=== PATIENT | female | born 1930 | race Caucasian/White ===

== ENCOUNTER 2016-03-05 02:03 | Inpatient (IN) | payer MEDICARE, MEDICAID ==
[2016-03-05] VITALS (17 sets, daily range): BP systolic 115–158; BP diastolic 57–75
[~2016-03-05] VITALS: Ht 162.6 cm; Wt 63.3 kg
[~2016-03-05 02:03] MED LIST: *BLDWK1; /AMLO25TA PO; /MOM400 PO; /PANT40TA OR; /PANT40TA PO; /QUIN20TA; /QUIN20TA OR; ACCUPRIL20 PO; ACCUPRIL20 SAMPLES; ACCUPRIL40; ACET-654 PO; ACET65TA OR; ALDA25TA2; ALDA25TA2 OR; AMLO10TA; AMLO5TAB OR; AMLO5TAB2 PO; ASPI325T PO; ATEN25TA PO; ATENOL25 PO; ATENOLOL50 FOR BP; Asacol PO; BACT400T OR; CALCIUM OR; CIPR25SS OR; COLCHI0.6 FOR GOUT; CYCL5TAB PO; DITROPAN PO; F ACCUPRIL PO; FLAG500T OR; K DUR PO; LACT10SO8; LASIX20; LIDO1DIS2 TD; LIDO5DIS36 TD; LIPI20TA PO; LISI5TAB PO; LOPE2TAB PO; LORTTAB2 PO; MAALSUS16 PO; MAALSUS8 PO; MACROBID PO; MAG-TAB OR; MAGN500T2 OR; MILKSUS5 PO; MOTRIN6; MULTIVIT PO; NORV5TAB PO; NORVASC10 PO; NORVASC5 PO; OPTI0.5D5 OU; OXYB5TA PO; OXYB5TAB4 OR; OXYB5TAB80 PO; PAIN325T OR; POTA10CA2 OR; POTA20TA2 OR; PROP60CA OR; PROP60TA; PROPRANOLOL OR; PROT1TAB2 PO; SLOWTAB; SPIRPOW OR; TENO25TA PO; TYLE325T5 PO; VITAMIN C OR; [UNRECOGNIZED DRUG - CODE]; [UNRECOGNIZED DRUG - CODE] PO; [UNRECOGNIZED DRUG - CODE] PO; [UNRECOGNIZED DRUG - OTHER] -; [UNRECOGNIZED DRUG - REMARK] XX; asacol PO; imodium PO
[2016-03-05] MEDS ORDERED: dexameTHASONE 20 MG/5 ML VIAL (J1100) As Ordered ONE (02:39)
[2016-03-05] MEDS ORDERED: niCARdipine 40MG IN 200ML NACL IV BAG As Ordered ONE (02:39)
[2016-03-05] MEDS ORDERED: ASPI81CH PO (02:59)
[2016-03-05] MEDS ORDERED: ALBU83IN INH (02:59)
[2016-03-05] MEDS ORDERED: MYLASSUD PO (02:59)
[2016-03-05] MEDS ORDERED: KLOR1CAP2 PO (02:59)
[2016-03-05] MEDS ORDERED: GUAI100S29 PO (02:59)
--- NOTE | 2016-03-05 03:00 | REPUSA ---
CLINICAL HISTORY: Suspected stroke. TECHNIQUE: Multiple axial CT images were obtained through the brain without IV contrast material. COMMENTS: Comparison is made to the prior exam performed on 06/13/2014. There is acute hematoma measuring 2.5x2.2 cm in its largest transverse and anterior-posterior dimensi ons respectively. This is noted in the left basal ganglia and thalamus. Associated left intraventricu lar hemorrhage. 4 mm midline shift to the right side. Surrounding edema and mass effect with compress ion of the corresponding aspect of the left lateral ventricle. IMPRESSION: Acute intra-parenchymal left cerebral hematoma in the left basal ganglia and thalamus. Associated 4 mm midline shift to the right side. Surrounding edema. Compression of the left lateral ventricle. Associated acute intraventricular hemorrhage. Thank you for your kind referral of this patient.
[2016-03-05 03:14] LABS: MEAN CORPUSCULAR HEMOGLOBIN 23.1 pg (27.0-33.0); MEAN CORPUSCULAR HGB CONC 32.2 g/dl (32.0-36.5); MEAN CORPUSCULAR VOLUME 71.9 fl (80.0-96.0)
[2016-03-05 03:19] LABS: ANION GAP 12 MEQ/L (8-16); BLOOD UREA NITROGEN 17 MG/DL (7-18); CALCIUM LEVEL 8.3 MG/DL (8.8-10.2); CARBON DIOXIDE LEVEL 25 MEQ/L (21-32); CHLORIDE LEVEL 106 MEQ/L (98-107); GLOMERULAR FILTRATION RATE > 60.0 (>32); GLUCOSE, FASTING 126 MG/DL (83-110); INR 1.6; POTASSIUM SERUM 3.2 MEQ/L (3.5-5.1); SODIUM LEVEL 143 MEQ/L (136-145)
--- NOTE | 2016-03-05 08:18 | REP ---
Clinical: Trauma. Technique: AP, lateral views of the right tibia / fibula. Findings: There is a nondisplaced fracture involving the distal fibular metadiaphysis and possible nondisplaced fracture of the may medial malleolus. Injury involving the proximal fibular metadiaphysis versus chronic change cannot be excluded as well. Vascular calcifications are identified. Underlying osteopenia and degenerative changes appreciated. Soft tissue swelling at the ankle noted. Impression: Nondisplaced fracture of the distal fibula and medial malleolus. Soft tissue swelling at the ankle. Cannot exclude injury to the proximal fibular shaft. Signed by Seng Schneider MD 03/05/2016 08:10 A
--- NOTE | 2016-03-05 09:02 | REP ---
MR BRAIN WITHOUT CONTRAST: HISTORY: Intracranial hemorrhage. COMPARISON: MR 06/13/[address] 03/05/2016. An acute intraparenchymal hematoma is present in the left thalamus, basal ganglia, temporal and parietal lobes. The hematoma measures 2.8 cm in transverse by 2.7 cm in AP dimensions and is unchanged in size compared to the previous study. There is mass effect with partial effacement of the body of the left lateral and third ventricles with minimal midline shift to the right. An area of increased signal intensity on T2-weighted images is present in the right thalamus. This represents an old lacunar infarction. Areas of increased signal intensity on T2-weighted images are present in the periventricular and subcortical white matter and kemi. This represents small vessel ischemic disease. Multiple small areas of decreased signal intensity on T2 gradient echo images are present in the cerebral hemispheres, brainstem and cerebellum. 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 Intraventricular hemorrhage is present. The ventricular system and cortical sulci are dilated consistent with moderate volume loss. There is no extracerebral collection. Mucosal thickening is present in the right mastoid air cells. The sinuses are clear. IMPRESSION: 1. There is an acute intraparenchymal hematoma 2.8 cm in width in the left thalamus, basal ganglia, temporal and parietal lobes with minimal midline shift to the right unchanged in size compared to the previous study. 2. Intraventricular hemorrhage unchanged compared to the previous study. 3. 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 4. Small vessel ischemic disease. 5. Moderate volume loss. Signed by John Baez MD 03/05/2016 09:12 A
[2016-03-05] MEDS ORDERED: NICARDIPINE HCL IV SCH (09:15)
[2016-03-05] MEDS ORDERED: DILUENT IV SCH (09:15)
--- NOTE | 2016-03-05 09:17 | REP ---
MRI BRAIN WITHOUT CONTRAST: HISTORY: Intracranial hemorrhage. 3D [id number] MR angiography was performed at the level of the [place]. There is no aneurysm or arteriovenous malformation. Mild atherosclerotic disease involves the cavernous and supraclinoid internal carotid arteries, right middle cerebral artery trifurcation and right posterior cerebral artery. There is origin of the right posterior cerebral artery. Major intracranial vessels are patent. The left vertebral artery is dominant. IMPRESSION: 1. There is no aneurysm or arteriovenous malformation. 2. Atherosclerotic disease as described above. Signed by John Baez MD 03/05/2016 09:20 A
--- NOTE | 2016-03-05 09:55 | REP ---
Clinical: Trauma. Technique: Axial noncontrast images through the thoracic spine with coronal and sagittal re-formations. Comparison: None. Findings: There is a compression fracture at T12 with approximately 50% loss of anterior vertebral body height which is relatively new compared to abdominal CT dated 2012. There is no associated retropulsed fracture fragment and no obvious canal stenosis at this level. Moderate osteopenia and multilevel degenerative disc osteophyte complexes are noted throughout the visualized thoracic spine. There is chronic posterior osteophyte and associated disc bulge at the T7-T8 level which appears to cause moderate canal stenosis. Alignment is otherwise maintained and the spinal canal appears otherwise patent and normal. Posterior elements and spinous processes are intact. Impression: 1. Compression fracture at T12 with 50% loss of anterior vertebral body height and no retropulsed fracture fragment. 2. Osteopenia and moderate to advanced multilevel degenerative disc osteophyte complexes including posterior osteophyte and disc bulge at the T7-T8 level which appears to cause moderate chronic canal stenosis. Signed by Seng Schneiedr MD 03/05/2016 09:47 A
--- NOTE | 2016-03-05 09:58 | REP ---
CT CERVICAL SPINE WITHOUT CONTRAST: HISTORY: Trauma. There is no acute fracture. Disc bulges are present at the C3-4 through C5-6 levels. A disc bulge with associated osteophyte formation is present at the C6-7 level. There is minimal narrowing of the spinal canal. Uncinate process and/or facet hypertrophy are present at the C2-3 through C7-T1 levels. These findings produce minimal to mild narrowing of the neural foramina. The C5-6 and C6-7 intervertebral discs are decreased in height consistent with disc degeneration. There are 2 mm of anterior subluxation of C5 on 6. Hypodensities are present in the thyroid gland. These may represent cysts. IMPRESSION: 1. There is no acute fracture. 2. There is cervical spondylosis at the C2-3 through C7-T1 levels. 3. There are hypodensities in the thyroid gland. These may represent cysts. Signed by John Baez MD 03/05/2016 10:00 A
--- NOTE | 2016-03-05 10:18 | HPE ---
DATE OF ADMISSION: 03/05/2016 CRITICAL CARE NOTE I was called to the emergency department to evaluate this 85-year-old female found having fallen at the extended care facility. In the emergency department, she was found hypertensive and CT imaging of her head revealed a large intraparenchymal bleed, 23 mm, as well as old lacunar infarctions. Nicardipine drip was initially started and weaned, targeting a systolic blood pressure of 140. At bedside, she is somnolent, nonverbal, Joseph coma scale is 9. 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 Medications listed on recent admission include amlodipine and atenolol. At bedside, she is ill-appearing, in the position in the bed. Her temperature is 97, pulse rate 110, respirations 18, blood pressure 166/47. HEENT: She has a leftward gaze, but is able to move her eyes toward the right. Pupils are small, but respond to light. She has a positive corneal reflex. Neck is supple. Heart sounds are regular with a systolic murmur. Breath sounds are coarse, mildly diminished. Abdomen is soft. There are bowel sounds in the right lower quadrant. There is no palpable mass, but the liver edge is somewhat enlarged and firm. Extremities are cool. Right lower extremity is in an Aircast. Pulses are palpable times four. She has spontaneous movement of her left side only, withdraws to pain. Diagnostic Studies: CT scan and MRI of the brain show an acute hematoma of the left thalamus and basal ganglion with minimal shift and old lacunar infarctions. Sodium is 143, potassium 3.2, chloride 106, CO2 25, BUN 17, creatinine 0.8, glucose 126. White cell count is 15, hemoglobin 12.6, hematocrit 39, and platelet count 129,000. The primary problem requiring critical attention is acute intracranial hemorrhage. Will target blood pressure control with nicardipine. I have consulted with neurosurgery. We have had a discussion at bedside. The patient is not considered a candidate for surgery at this time. Will repeat imaging in 8 hours. 2. Right tibial fracture. The patient is in an Aircast. According to the emergency room (ER) staff, further intervention would not be needed. 3. Deep vein thrombosis (DVT) prophylaxis will be sequential hose. 4. Ulcer prophylaxis will be addressed with Protonix. The patient's family has been contacted and are out of town. They are en route. We will update them with regard to her status on arrival. She had previously indicated her desire not to undergo resuscitation nor intubation. We will honor that request at the time of her admission. Her condition is critical. Prognosis is guarded. 88 minutes was spent in the provision of bedside critical care and coordination.
--- NOTE | 2016-03-05 13:00 | EDDOCDS ---
Nurse's Notes [facility] Name: Flavio Perkins Age: 85 yrs Sex: Female : 1930 Arrival Date: 03/05/2016 Time: 02:03 Bed Admit Hold Private MD: Cleve Gómez Diagnosis: Aphasia following nontraumatic intracerebral hemorrhage Presentation: 03/05 02:07 Presenting complaint: EMS states: pt found on floor by staff at approx 01:15. right mlc sided weakness and garbled speech. unknown last well time. The last date and time the patient was known to be well was was at an unknown time on an unknown date. An acute neurological deficit is present. The charge nurse has been notified. The patient has been moved to a treatment area. The patients blood glucose was checked before arriving to the hospital and was found to be normal. Adult Sepsis Screening: Suicide/Homicide risk assessment- Unable to assess. Status: Patient is not a member service representative or dependent. Transition of care: patient was received from [facility]-assisted. 02:07 Acuity: LAZARO Level 2 [facility] [place] 02:07 Method Of Arrival: Ambulance [facility] [place] 02:15 Adult Sepsis Screening: Patient has new or worsening altered mentation (1 point). mlc Patient's respiratory rate is less than 22. Systolic blood pressure is greater than 100. Patient has a qSOFA score of 1- Negative Sepsis Screen. Triage Assessment: 02:15 The onset of the patients symptoms was less than three hours ago. General: Appears in mlc no apparent distress, Behavior is cooperative. General:. Pain: Denies pain. The patient is triaged at the bedside. See Assessment in Nurses Notes section of ED record. Neurological: Level of Consciousness is awake, obeys commands, Oriented to person, [employer] are weak on right Weakness in right arm(s) Speech is slurred, Facial droop on right, tongue shifts to right side . Pupils are PERRLA, Reports no additional symptoms. Cardiovascular: Heart tones S1 S2 present Chest pain is denied. Respiratory: Airway is patent Respiratory effort is even, unlabored, Respiratory pattern is regular, Breath sounds are clear bilaterally. GI: Abdomen is non- distended Bowel sounds present X 4 quads. Derm: Skin is pale. Musculoskeletal: Swelling absent other right ankle, pt flinches when right ankle is touched. Historical: - Allergies: No known drug Allergies; - Home Meds: 1. aspirin 81 mg Oral TbEC once daily (Last dose: 03/04/2016 08:28) 2. atenolol 25 mg Oral tab 1 tab once daily (Last dose: 03/04/2016 08:28) 3. Klor-Con Sprinkle 10 mEq oral cpER 1 cap once daily (Last dose: 03/04/2016 08:28) - PMHx: disorder magnesium metabolism; essential hypertension; liver cirrhosis; TIA; Hypokalemia; Portal hypertension; Chronic Low Back Pain; Hemochromatosis; - PSHx: Cholecystectomy; Appendectomy; Hysterectomy; Thyroidectomy; - Social history: Smoking status: unknown if patient ever smoked tobacco. Patient is speech impaired. - Family history: Not pertinent. - : The pt / caregiver states he / she is not on anticoagulants. Home medication list is obtained from the facility MAR. - Exposure Risk Screening:: None identified. Screenin:17 Screening information is obtained from the patient, residence staff. Fall risk: At risk mlc due to age, gait disturbance, injury, prior history of falls. Assistance ADL's: Requires assistance with meal preparation, this assistance is provided by residence staff, bathing, assistance is provided by residence staff, dressing, assistance is provided by residence staff, toileting, assistance is provided by residence staff, housework, assistance is provided by residence staff, medication administration, assistance is provided by residence staff. Abuse/DV Screen: The patient / caregiver reports he/she is: pt cannot be assessed for living situation at this time. Nutritional screening: No deficits noted. home support is adequate. 02:19 Advance Directives: There is an active DNR order and the pt has a copy here at this lf1 time. Assessment: 02:19 General: pt keeping right arm at 90 degree angle, doesn't not move it . mlc 03:04 Reassessment: Patient appears in no apparent distress at this time. Patient states mlc symptoms have not improved. IV fluids infusing per order, pt resting in bed. pt able to answer yes or no questions, responds to name. 03:17 Reassessment: Patient appears in no apparent distress at this time. Patient states mlc symptoms have not improved. pt returned from x-ray. Dr. Smith made aware of BP, infusion discontinued at this time. . 04:19 Reassessment: Patient appears in no apparent distress at this time. pt resting mlc comfortably. no changes since prior. resp easy/unlabored. . Respiratory: Breath sounds are clear bilaterally. 05:11 General: Appears in no apparent distress, comfortable. General: pt resting with eyes mlc closed . Respiratory: Airway is patent Respiratory effort is even, unlabored, Respiratory pattern is regular. 05:41 General: Appears in no apparent distress, comfortable, to be sleeping. mlc 06:50 General: Appears in no apparent distress, comfortable. General: pt cleaned and new mlc linens applied. pt able to roll from side to side with minimal assistance. . Neurological: Level of Consciousness is awake, obeys commands, Oriented to person, Speech is slurred. Respiratory: Airway is patent Respiratory effort is even, unlabored, Respiratory pattern is regular. 07:10 General: Appears in no apparent distress. Pain: Denies pain. Neurological: Level of ml6 Consciousness is awake, alert, Oriented to person, place, [employer] are weak on right Weakness in right in bilateral hand's) arm(s) leg(s) foot/feet Speech is slurred, with expressive aphasia noted, Facial droop on right, Pupils are PERRLA. Cardiovascular: No deficits noted. Capillary refill < 3 seconds is brisk in bilateral fingers toes. Respiratory: No deficits noted. Airway is patent Respiratory effort is even, unlabored, Respiratory pattern is regular, symmetrical, Breath sounds are clear bilaterally. 08:10 Reassessment: Patient appears in no apparent distress at this time. Patient denies pain ml6 at this time. Patient states symptoms have not improved. no change from previous assessment, patient answers yes no questions appropriately. 09:16 Reassessment: Patient appears in no apparent distress at this time. Patient denies pain ml6 at this time. Patient states symptoms have not improved. no change from previous assessment. 10:00 General: Appears in no apparent distress, comfortable. Pain: Denies pain. Neurological: ml6 Level of Consciousness is awake, alert, Oriented to person, place, Speech with expressive aphasia noted. Cardiovascular: No deficits noted. Capillary refill < 3 seconds is brisk in bilateral fingers toes. Respiratory: No deficits noted. Airway is patent Respiratory effort is even, unlabored, Respiratory pattern is regular, symmetrical. 11:00 Reassessment: Patient appears in no apparent distress at this time. Patient denies pain ml6 at this time. Patient states symptoms have not improved. patient sleeping soundly resp unlabored. 12:00 Reassessment: Patient appears in no apparent distress at this time. Patient denies pain ml6 at this time. Patient states symptoms have not improved. 12:58 General: Appears in no apparent distress. Pain: Denies pain. Neurological: Weakness in ml6 right in bilateral hand's) arm(s) leg(s) foot/feet Speech with expressive aphasia noted. Cardiovascular: No deficits noted. Vital Signs: 02:17 BP 202 / 95 (auto/); mlc 02:18 Pulse 70 MON; Pulse Ox 97% ; mlc 02:19 BP 198 / 94 LA Supine (auto/reg); Pulse 71 MON; Resp 20 S; Temp 98.6(TE); Pulse Ox 98% cln on 2 lpm NC; 02:32 Pulse 68 MON; Pulse Ox 96% ; mlc 02:32 BP 187 / 88; mlc 02:32 BP 187 / 88 (auto/); mlc 02:33 Pulse 66 MON; Pulse Ox 96% ; mlc 02:46 Pulse 66 MON; Pulse Ox 96% ; mlc 02:46 BP 179 / 84 (auto/); mlc 02:53 BP 183 / 80 (auto/); mlc 02:54 Pulse 66 MON; Pulse Ox 97% ; mlc 02:56 Pulse 68 MON; Pulse Ox 97% ; mlc 02:56 BP 172 / 80 (auto/); mlc 03:01 BP 161 / 75 (auto/); mlc 03:02 Pulse 68 MON; Pulse Ox 96% ; mlc 03:06 Pulse 70 MON; Pulse Ox 91% ; mlc 03:06 BP 152 / 70 (auto/); mlc 03:11 BP 123 / 59 (auto/); mlc 03:12 Pulse 70 MON; Pulse Ox 92% ; mlc 03:16 BP 118 / 54 (auto/); mlc 03:17 Pulse 66 MON; Pulse Ox 94% ; mlc 03:20 BP 107 / 57 (auto/); mlc 03:20 Pulse 68 MON; Pulse Ox 88% ; mlc 03:22 Pulse 66 MON; Pulse Ox 96% ; mlc 03:26 BP 97 / 51 (auto/); mlc 03:27 Pulse 64 MON; Pulse Ox 95% ; mlc 03:31 BP 99 / 56 (auto/); mlc 03:32 Pulse 64 MON; Pulse Ox 93% ; mlc 03:36 BP 113 / 59 (auto/); mlc 03:37 Pulse 68 MON; Pulse Ox 95% ; mlc 03:41 BP 113 / 59 (auto/); mlc 03:42 Pulse 68 MON; Pulse Ox 97% ; mlc 03:46 BP 113 / 63 (auto/); mlc 03:47 Pulse 68 MON; Pulse Ox 96% ; mlc 03:51 BP 117 / 66 (auto/); mlc 03:52 Pulse 68 MON; Pulse Ox 97% ; mlc 03:56 BP 115 / 65 (auto/); mlc 03:57 Pulse 68 MON; Pulse Ox 97% ; mlc 04:01 BP 122 / 67 (auto/); mlc 04:02 Pulse 68 MON; Pulse Ox 97% ; mlc 04:06 Pulse 68 MON; Pulse Ox 98% ; mlc 04:06 BP 151 / 87 (auto/); mlc 04:11 BP 151 / 79 (auto/); mlc 04:12 BP 156 / 72 (auto/); mlc 04:12 Pulse 70 MON; Pulse Ox 98% ; mlc 04:13 Pulse 72 MON; Pulse Ox 97% ; mlc 04:16 BP 156 / 72 (auto/); mlc 04:17 Pulse 76 MON; Pulse Ox 98% ; mlc 04:21 BP 143 / 74 (auto/); mlc 04:22 Pulse 76 MON; Pulse Ox 97% ; mlc 04:26 BP 139 / 68 (auto/); mlc 04:27 Pulse 78 MON; Pulse Ox 97% ; mlc 04:31 BP 129 / 60 (auto/); mlc 04:32 Pulse 74 MON; Pulse Ox 97% ; mlc 04:36 BP 134 / 63 (auto/); mlc 04:37 Pulse 74 MON; Pulse Ox 97% ; mlc 04:41 BP 125 / 58 (auto/); mlc 04:42 Pulse 72 MON; Pulse Ox 97% ; mlc 04:46 BP 127 / 62 (auto/); mlc 04:47 Pulse 74 MON; Pulse Ox 97% ; mlc 04:51 BP 129 / 61 (auto/); mlc 04:52 Pulse 74 MON; Pulse Ox 96% ; mlc 04:56 BP 118 / 58 (auto/); mlc 04:57 Pulse 72 MON; Pulse Ox 97% ; mlc 05:01 BP 118 / 60 (auto/); mlc 05:02 Pulse 72 MON; Pulse Ox 97% ; mlc 05:06 BP 117 / 58 (auto/); mlc 05:07 Pulse 72 MON; Pulse Ox 97% ; mlc 05:11 BP 120 / 59 (auto/); mlc 05:12 Pulse 70 MON; Pulse Ox 97% ; mlc 05:16 BP 124 / 57 (auto/); mlc 05:17 Pulse 70 MON; Pulse Ox 97% ; mlc 05:21 BP 125 / 57 (auto/); mlc 05:22 Pulse 70 MON; Pulse Ox 96% ; mlc 05:26 BP 124 / 58 (auto/); mlc 05:27 Pulse 72 MON; Pulse Ox 97% ; mlc 05:31 BP 112 / 56 (auto/); mlc 05:32 Pulse 70 MON; Pulse Ox 97% ; mlc 05:36 BP 129 / 64 (auto/); mlc 05:37 Pulse 42 MON; Pulse Ox 97% ; mlc 05:39 Pulse 70 MON; Pulse Ox 97% ; mlc 05:41 BP 134 / 71 (auto/); mlc 05:42 Pulse 70 MON; Pulse Ox 97% ; mlc 05:46 BP 128 / 63 (auto/); mlc 05:47 Pulse 76 MON; Pulse Ox 97% ; mlc 05:51 BP 126 / 62 (auto/); mlc 05:52 Pulse 74 MON; Pulse Ox 96% ; mlc 05:56 BP 130 / 63 (auto/); mlc 05:57 Pulse 72 MON; Pulse Ox 95% ; mlc 06:06 BP 132 / 74 (auto/); mlc 06:06 Pulse 80 MON; Pulse Ox 97% ; mlc 06:11 Pulse 76 MON; Pulse Ox 94% ; mlc 06:11 BP 118 / 59 (auto/); mlc 06:16 BP 116 / 56 (auto/); mlc 06:17 Pulse 74 MON; Pulse Ox 93% ; mlc 06:18 Pulse 72 MON; Pulse Ox 93% ; mlc 06:21 BP 106 / 56 (auto/); mlc 06:22 Pulse 66 MON; Pulse Ox 94% ; mlc 06:26 Pulse 72 MON; Pulse Ox 95% ; mlc 06:26 BP 104 / 52 (auto/); mlc 06:29 BP 100 / 62 (auto/); mlc 06:30 Pulse 86 MON; Pulse Ox 96% ; mlc 06:31 BP 105 / 55 (auto/); mlc 06:32 Pulse 76 MON; Pulse Ox 97% ; mlc 06:36 BP 102 / 58 (auto/); mlc 06:36 Pulse 76 MON; Pulse Ox 97% ; mlc 06:45 BP 125 / 66 (auto/); mlc 06:48 Pulse 72 MON; Pulse Ox 96% ; mlc 07:16 BP 103 / 54 (auto/); ml6 07:16 Pulse 72 MON; Resp 16; Pulse Ox 96% on R/A; ml6 07:31 BP 108 / 59 (auto/); ml6 07:31 Pulse 68 MON; Resp 16; Pulse Ox 97% on R/A; ml6 07:36 Weight 61.14 kg (R); Height 5 ft. (152.40 cm); ml6 07:36 BP 101 / 59 (auto/); ml6 07:36 Pulse 68 MON; Resp 16; Pulse Ox 94% on R/A; ml6 08:32 BP 166 / 78 (auto/); Pulse 74; Resp 16; Pulse Ox 98% on R/A; ml6 09:32 BP 139 / 69 (auto/); ml6 09:32 Pulse 72 MON; Resp 18; Pulse Ox 98% on R/A; ml6 09:47 BP 126 / 62 (auto/); ml6 09:47 Pulse 70 MON; Resp 16; Pulse Ox 98% on R/A; ml6 10:02 BP 124 / 62 (auto/); ml6 10:02 Pulse 70 MON; Resp 16; Pulse Ox 98% on R/A; Pain 0/10; ml6 10:17 BP 124 / 66 (auto/); ml6 10:17 Pulse 70 MON; Resp 16; Pulse Ox 97% on R/A; ml6 10:32 BP 129 / 68 (auto/); ml6 10:32 Pulse 72 MON; Resp 16; Pulse Ox 97% on R/A; ml6 10:47 BP 129 / 58 (auto/); ml6 10:47 Pulse 76 MON; Resp 16; Pulse Ox 98% ; ml6 11:02 BP 148 / 66 (auto/); ml6 11:02 Pulse 70 MON; Resp 16; Pulse Ox 96% on R/A; ml6 11:32 BP 106 / 56 (auto/); ml6 11:32 Pulse 74 MON; Resp 16; Pulse Ox 96% on R/A; ml6 11:47 BP 105 / 55 (auto/); ml6 11:47 Pulse 74 MON; Resp 16; Pulse Ox 97% on R/A; ml6 12:02 BP 104 / 55 (auto/); ml6 12:02 Pulse 72 MON; Resp 6; Pulse Ox 97% on R/A; ml6 12:17 BP 104 / 55 (auto/); ml6 12:17 Pulse 72 MON; Resp 16; Temp 97.8(O); Pulse Ox 96% on R/A; Pain 0/10; ml6 07:36 Body Mass Index 26.33 (61.14 kg, 152.40 cm) ml6 Vitals: 02:15 Glucose Measurement D-stick done by EMS. Log In Time N/A - ambulance arrival. mlc ED Course: 02:04 Patient visited by Leilani Kee, [place]. ml3 02:04 Cleve Gómez is Private Physician. ml3 02:04 Rere Carballo RN is Primary Nurse. ml3 02:04 Patient moved to Waiting ml3 02:04 Patient moved to 11 ml3 02:12 Triage Initiated mlc 02:17 Emeterio Smith DO is Attending Physician. cs11 02:17 Patient visited by Emeterio Smith DO. cs11 02:17 The patient / caregiver is instructed regarding the plan of care and ED course. mlc 02:19 Patient visited by Rere Carballo RN. mlc 02:19 Unable to orient pt to ED due to medical condition. Patient has correct armband on for cln positive identification. Placed in gown. Bed in low position. Call light in reach. Side rails up X 1. 02:20 Patient visited by Elise Dacosta PCA. cln 03:05 casing in line feeder on. Pulse ox on. NIBP on. mlc 03:05 Maintain field IV. Dressing intact. Good blood return noted. Site clean & dry. Gauge & mlc site: 18g left AC. 03:06 Patient visited by Rere Carballo RN. mlc 03:19 Patient visited by Rere Carballo RN. mlc 03:34 Patient visited by Rere Carballo RN. mlc 03:39 [facility] Payment Agreement was scanned into [employer] and attached to record. hs2 03:40 CT Head Without Contrast Returned. EDMS 04:09 Patient visited by Rere Carballo RN. mlc 04:20 Patient visited by Rere CarballoGAVI. mlc 04:45 air cast applied to right ankle. mlc 05:06 Patient moved to OBSERVATION cs11 05:11 Patient visited by Rere Carballo,GAVI. mlc 05:41 Patient visited by Rere Carballo,GAVI. mlc 06:51 Patient visited by Rere Carballo,GAVI. mlc 06:55 Attending Physician role handed off by Emeterio Smith DO sd1 06:55 Meryl Amador MD is Attending Physician. sd1 07:40 Patient moved to MRI ml6 07:55 Patient visited by Romeo Rios, GAVI. ml6 08:27 Tibia/Fibula Returned. EDMS 08:46 Mike iRvas is Hospitalizing Provider. sd1 08:52 Primary Nurse role handed off by Rere Carballo RN jc4 08:54 Romeo Rios, GAVI is Primary Nurse. jc4 09:10 -MRI-Brain without Returned. EDMS 09:53 -MRA-Brain without contrast Returned. EDMS 10:38 CT Spine,Thoracic W/o Contrast Returned. EDMS 10:38 CT Spine,Cervical W/o Contrast Returned. EDMS 10:44 Patient moved to Admit Hold jc4 12:58 No procedures done that require assistance. ml6 Administered Medications: 02:59 Drug: Dexamethasone 6 mg [dexamethasone 4 mg/mL injection solution] Route: IV; Rate: mlc bolus; Site: left antecubital; 02:59 Drug: niCARdipine 5 mg/hr [nicardipine 40 mg/200 mL in sodium chloride(iso) intravenous mlc piggyback] Route: IV; Rate: 25 mL/hr; Site: left antecubital; 03:16 Follow up: Rate change 2 mg/hr mlc 03:17 Follow up: IV Status: Infusion discontinued mlc 03:07 CANCELLED (Other Intervention Used): niCARdipine (CVA, 25mg/250mL NS) 5 mg/hr IV at mlc calculated rate continuous; Titrate 2.5mg/hr q5min to keep SBP 140-185mmHg. Max rate 15mg/hr 03:33 Drug: NS 0.9% 500 ml [sodium chloride 0.9 % intravenous solution] Route: IV; Rate: mlc bolus; Site: left antecubital; 04:09 Follow up: IV Status: Completed infusion mlc 04:18 Drug: niCARdipine 1 mg/hr [nicardipine 40 mg/200 mL in sodium chloride(iso) intravenous mlc piggyback] Route: IV; Rate: 25 mL/hr; Site: left antecubital; Order Results: Lab Order: CBC; [facility] 03/05/16 02:53 Test: WHITE BLOOD COUNT; Value: 15.0; Range: 4.0-10.0; Abnormal: Above high normal; Units: K/mm3; Status: F Test: RED BLOOD COUNT; Value: 5.44; Range: 4.00-5.40; Abnormal: Above high normal; Units: M/mm3; Status: F Test: HEMOGLOBIN; Value: 12.6; Range: 12.0-16.0; Units: g/dl; Status: F Test: HEMATOCRIT; Value: 39.1; Range: 36.0-47.0; Units: %; Status: F Test: MEAN CORPUSCULAR VOLUME; Value: 71.9; Range: 80.0-96.0; Abnormal: Below low normal; Units: fl; Status: F Test: MEAN CORPUSCULAR HEMOGLOBIN; Value: 23.1; Range: 27.0-33.0; Abnormal: Below low normal; Units: pg; Status: F Test: MEAN CORPUSCULAR HGB CONC; Value: 32.2; Range: 32.0-36.5; Units: g/dl; Status: F Test: RED CELL DISTRIBUTION WIDTH; Value: 19.0; Range: 11.5-14.5; Abnormal: Above high normal; Units: %; Status: F Test: PLATELET COUNT, AUTOMATED; Value: 124; Range: 150-450; Abnormal: Below low normal; Units: k/mm3; Status: F Lab Order: MED Profile; [facility]03/05[facility] 02:53 Test: GLUCOSE, FASTING; Value: 126; Range: 83-110; Abnormal: Above high normal; Units: MG/DL; Status: F Test: BLOOD UREA NITROGEN; Value: 17; Range: 7-18; Units: MG/DL; Status: F Test: CREATININE FOR GFR; Value: 0.80; Range: 0.55-1.02; Units: MG/DL; Status: F Test: GLOMERULAR FILTRATION RATE; Value: > 60.0; Range: >32; Status: F Test: SODIUM LEVEL; Value: 143; Range: 136-145; Units: MEQ/L; Status: F Test: POTASSIUM SERUM; Value: 3.2; Range: 3.5-5.1; Abnormal: Below low normal; Units: MEQ/L; Status: F Test: CHLORIDE LEVEL; Value: 106; Range: 98-107; Units: MEQ/L; Status: F Test: CARBON DIOXIDE LEVEL; Value: 25; Range: 21-32; Units: MEQ/L; Status: F Test: ANION GAP; Value: 12; Range: 8-16; Units: MEQ/L; Status: F Test: CALCIUM LEVEL; Value: 8.3; Range: 8.8-10.2; Abnormal: Below low normal; Units: MG/DL; Status: F Test Note: ; Units are mL/min/1.73 m2 Chronic Kidney Disease Staging per NKF: Stage I & II GFR >=60 Normal to Mildly Decreased Stage III GFR 30-59 Moderately Decreased Stage IV GFR 15-29 Severely Decreased Stage V GFR <15 Very Little GFR Left ESRD GFR <[address] Lab Order: Pt & Aptt; SPEC'M 03/05/16 02:53 Test: PROTHROMBIN TIME; Value: 19.1; Range: 12.3-14.5; Abnormal: Above high normal; Units: SECONDS; Status: F Test: INR; Value: 1.60; Status: F Test: PARTIAL THROMBOPLASTIN TIME; Value: 44.2; Range: 26.6-37.1; Abnormal: Above high normal; Units: SECONDS; Status: F Test Note: ; THERAPUTIC HUMAN INR VALUES INDICATIONS NORMAL RANGES PROPHYLAXIS/TREATMENT OF: VENOUS THROMBOSIS 2.0-3.0 PULMONARY EMBOLISM 2.0-3.0 PREVENTION OF SYSTEMIC EMBOLISM FROM: TISSUE HEART VALVES 2.0-3.0 ACUTE MYOCARDIAL INFARCTION 2.0-3.0 VALVULAR HEART DISEASE 2.0-3.0 ATRIAL FIBRILLATION 2.0-3.0 MECHANICAL VALVES(HIGH RISK) 2.5-3.5 RECURRENT MYOCARDIAL INFARCTION 2.5-3.5 Radiology Order: CT Head Without Contrast Test: CT Head Without Contrast REASON FOR EXAMINATION: Syncope; ; CLINICAL HISTORY: Suspected stroke.; TECHNIQUE: Multiple axial CT images were obtained through the brain without IV contrast material.; COMMENTS:; Comparison is made to the prior exam performed on 06/13/2014.; There is acute hematoma measuring 2.5x2.2 cm in its largest transverse and anterior-posterior dimensi; ons respectively. This is noted in the left basal ganglia and thalamus. Associated left intraventricu; lar hemorrhage. 4 mm midline shift to the right side. Surrounding edema and mass effect with compress; ion of the corresponding aspect of the left lateral ventricle.; IMPRESSION:; Acute intra-parenchymal left cerebral hematoma in the left basal ganglia and thalamus.; Associated 4 mm midline shift to the right side.; Surrounding edema.; Compression of the left lateral ventricle.; Associated acute intraventricular hemorrhage.; Thank you for your kind referral of this patient.; ; ; Radiology Order: Tibia/Fibula Test: Tibia/Fibula REASON FOR EXAMINATION: Trauma; Clinical: Trauma.; ; Technique: AP, lateral views of the right tibia / fibula.; ; Findings: There is a nondisplaced fracture involving the distal fibular; metadiaphysis and possible nondisplaced fracture of the may medial malleolus.; Injury involving the proximal fibular metadiaphysis versus chronic change cannot; be excluded as well. Vascular calcifications are identified. Underlying; osteopenia and degenerative changes appreciated. Soft tissue swelling at the; ankle noted.; ; Impression:; Nondisplaced fracture of the distal fibula and medial malleolus.; Soft tissue swelling at the ankle.; Cannot exclude injury to the proximal fibular shaft.; ; ; Signed by; Seng Schneider MD 03/05/2016 08:10 A; Radiology Order: -MRA-Brain without contrast Test: -MRA-Brain without contrast REASON FOR EXAMINATION: per Dr Rivas for ICH; MRI BRAIN WITHOUT CONTRAST:; ; HISTORY: Intracranial hemorrhage.; ; 3D [id number] MR angiography was performed at the level of the [place]; [place]. There is no aneurysm or arteriovenous malformation. Mild; atherosclerotic disease involves the cavernous and supraclinoid internal carotid; arteries, right middle cerebral artery trifurcation and right posterior cerebral; artery. There is origin of the right posterior cerebral artery. Major; intracranial vessels are patent. The left vertebral artery is dominant.; ; IMPRESSION:; ; 1. There is no aneurysm or arteriovenous malformation.; ; 2. Atherosclerotic disease as described above.; ; ; Signed by; John Baez MD 03/05/2016 09:20 A; Radiology Order: -MRI-Brain without Test: -MRI-Brain without REASON FOR EXAMINATION: per Dr Rivas for ICH; MR BRAIN WITHOUT CONTRAST:; ; HISTORY: Intracranial hemorrhage.; ; COMPARISON: MR 06/13/[address] 03/05/2016.; ; An acute intraparenchymal hematoma is present in the left thalamus, basal; ganglia, temporal and parietal lobes. The hematoma measures 2.8 cm in transverse; by 2.7 cm in AP dimensions and is unchanged in size compared to the previous; study. There is mass effect with partial effacement of the body of the left; lateral and third ventricles with minimal midline shift to the right. An area of; increased signal intensity on T2-weighted images is present in the right; thalamus. This represents an old lacunar infarction. Areas of increased signal; intensity on T2-weighted images are present in the periventricular and; subcortical white matter and kemi. This represents small vessel ischemic; disease. Multiple small areas of decreased signal intensity on T2 gradient echo; images are present in the cerebral hemispheres, brainstem and cerebellum. This; represents hemosiderin secondary to chronic micro hemorrhage. Intraventricular; hemorrhage is present. The ventricular system and cortical sulci are dilated; consistent with moderate volume loss. There is no extracerebral collection.; Mucosal thickening is present in the right mastoid air cells. The sinuses are; clear.; ; IMPRESSION:; ; 1. There is an acute intraparenchymal hematoma 2.8 cm in width in the left; thalamus, basal ganglia, temporal and parietal lobes with minimal midline shift; to the right unchanged in size compared to the previous study.; ; 2. Intraventricular hemorrhage unchanged compared to the previous study.; ; 3. 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 Small vessel ischemic disease.; ; 5. Moderate volume loss.; ; ; Signed by; John Baez MD 03/05/2016 09:12 A; Radiology Order: CT Spine,Cervical W/o Contrast Test: CT Spine,Cervical W/o Contrast REASON FOR EXAMINATION: Trauma; CT CERVICAL SPINE WITHOUT CONTRAST:; ; HISTORY: Trauma.; ; There is no acute fracture. Disc bulges are present at the C3-4 through C5-6; levels. A disc bulge with associated osteophyte formation is present at the C6-7; level. There is minimal narrowing of the spinal canal. Uncinate process and/or; facet hypertrophy are present at the C2-3 through C7-T1 levels. These findings; produce minimal to mild narrowing of the neural foramina. The C5-6 and C6-7; intervertebral discs are decreased in height consistent with disc degeneration.; There are 2 mm of anterior subluxation of C5 on 6. Hypodensities are present in; the thyroid gland. These may represent cysts.; ; IMPRESSION:; ; 1. There is no acute fracture.; ; 2. There is cervical spondylosis at the C2-3 through C7-T1 levels.; ; 3. There are hypodensities in the thyroid gland. These may represent cysts.; ; ; Signed by; John Baez MD 03/05/2016 10:00 A; Radiology Order: CT Spine,Thoracic W/o Contrast Test: CT Spine,Thoracic W/o Contrast REASON FOR EXAMINATION: Trauma; Clinical: Trauma.; ; Technique: Axial noncontrast images through the thoracic spine with coronal and; sagittal re-formations.; ; Comparison: None.; ; Findings:; There is a compression fracture at T12 with approximately 50% loss of anterior; vertebral body height which is relatively new compared to abdominal CT dated; 2012. There is no associated retropulsed fracture fragment and no obvious canal; stenosis at this level.; ; Moderate osteopenia and multilevel degenerative disc osteophyte complexes are; noted throughout the visualized thoracic spine. There is chronic posterior; osteophyte and associated disc bulge at the T7-T8 level which appears to cause; moderate canal stenosis. Alignment is otherwise maintained and the spinal canal; appears otherwise patent and normal. Posterior elements and spinous processes; are intact.; ; Impression:; 1. Compression fracture at T12 with 50% loss of anterior vertebral body height; and no retropulsed fracture fragment.; 2. Osteopenia and moderate to advanced multilevel degenerative disc osteophyte; complexes including posterior osteophyte and disc bulge at the T7-T8 level which; appears to cause moderate chronic canal stenosis.; ; ; Signed by; Seng Schneider MD 03/05/2016 09:47 A; Outcome: 03:[address] [facility] [place] 08:46 Decision to Hospitalize by Provider. sd1 12:30 Discharge Assessment: patient administered narcotics - no. The following High Risk ml6 Discharge criteria are identified: None. Admitted to ICU accompanied by nurse, accompanied by tech, on monitor, with chart. Condition: stable. Admission hand-off: Report called to Nader Kohler RN. Property :Personal belongings accompany Pt. 12:59 Patient left the ED. ml6 Signatures: Dispatcher [employer] EDMS Meryl Amador MD MD sd1 Leilani Kee, [place] [facility] ml3 Tea Singer,RN RN lf1 Romeo Rios RN RN ml6 Carmenza Dumont RN RN jc4 Emeterio Smith, DO cs11 Rere Carballo RN RN mlc Anila Mir, Reg Reg hs2 Elise Dacosta, CELL REPAIRER CELL REPAIRER cln Corrections: (The following items were deleted from the chart) 03:03 02:59 niCARdipine (CVA, 25mg/250mL NS) 5 mg/hr IV at calculated rate in left mlc antecubital mlc MTDD
--- NOTE | 2016-03-05 13:00 | EDDOCDS ---
Physician Documentation [facility] Name: Flavio Perkins Age: 85 yrs Sex: Female : 1930 Arrival Date: 03/05/2016 Time: 02:03 Bed Admit Hold Private MD: Cleve Gómez Disposition: 03/05/16 08:46 Hospitalization ordered by Mike Rivas for Inpatient Admission. Preliminary diagnosis is Aphasia following nontraumatic intracerebral hemorrhage. - Bed requested for ICU. - Status is Inpatient Admission. ml6 - Condition is Stable. - Problem is new. - Symptoms are unchanged. Historical: - Allergies: No known drug Allergies; - Home Meds: 1. aspirin 81 mg Oral TbEC once daily (Last dose: 03/04/2016 08:28) 2. atenolol 25 mg Oral tab 1 tab once daily (Last dose: 03/04/2016 08:28) 3. Klor-Con Sprinkle 10 mEq oral cpER 1 cap once daily (Last dose: 03/04/2016 08:28) - PMHx: disorder magnesium metabolism; essential hypertension; liver cirrhosis; TIA; Hypokalemia; Portal hypertension; Chronic Low Back Pain; Hemochromatosis; - PSHx: Cholecystectomy; Appendectomy; Hysterectomy; Thyroidectomy; - Social history: Smoking status: unknown if patient ever smoked tobacco. Patient is speech impaired. - Family history: Not pertinent. - : The pt / caregiver states he / she is not on anticoagulants. Home medication list is obtained from the facility APR. - Exposure Risk Screening:: None identified. Vital Signs: 03/05 02:17 BP 202 / 95 (auto/); mlc 02:18 Pulse 70 MON; Pulse Ox 97% ; mlc 02:19 BP 198 / 94 LA Supine (auto/reg); Pulse 71 MON; Resp 20 S; Temp 98.6(TE); Pulse Ox 98% cln on 2 lpm NC; 02:32 Pulse 68 MON; Pulse Ox 96% ; mlc 02:32 BP 187 / 88; mlc 02:32 BP 187 / 88 (auto/); mlc 02:33 Pulse 66 MON; Pulse Ox 96% ; mlc 02:46 Pulse 66 MON; Pulse Ox 96% ; mlc 02:46 BP 179 / 84 (auto/); mlc 02:53 BP 183 / 80 (auto/); mlc 02:54 Pulse 66 MON; Pulse Ox 97% ; mlc 02:56 Pulse 68 MON; Pulse Ox 97% ; mlc 02:56 BP 172 / 80 (auto/); mlc 03:01 BP 161 / 75 (auto/); mlc 03:02 Pulse 68 MON; Pulse Ox 96% ; mlc 03:06 Pulse 70 MON; Pulse Ox 91% ; mlc 03:06 BP 152 / 70 (auto/); mlc 03:11 BP 123 / 59 (auto/); mlc 03:12 Pulse 70 MON; Pulse Ox 92% ; mlc 03:16 BP 118 / 54 (auto/); mlc 03:17 Pulse 66 MON; Pulse Ox 94% ; mlc 03:20 BP 107 / 57 (auto/); mlc 03:20 Pulse 68 MON; Pulse Ox 88% ; mlc 03:22 Pulse 66 MON; Pulse Ox 96% ; mlc 03:26 BP 97 / 51 (auto/); mlc 03:27 Pulse 64 MON; Pulse Ox 95% ; mlc 03:31 BP 99 / 56 (auto/); mlc 03:32 Pulse 64 MON; Pulse Ox 93% ; mlc 03:36 BP 113 / 59 (auto/); mlc 03:37 Pulse 68 MON; Pulse Ox 95% ; mlc 03:41 BP 113 / 59 (auto/); mlc 03:42 Pulse 68 MON; Pulse Ox 97% ; mlc 03:46 BP 113 / 63 (auto/); mlc 03:47 Pulse 68 MON; Pulse Ox 96% ; mlc 03:51 BP 117 / 66 (auto/); mlc 03:52 Pulse 68 MON; Pulse Ox 97% ; mlc 03:56 BP 115 / 65 (auto/); mlc 03:57 Pulse 68 MON; Pulse Ox 97% ; mlc 04:01 BP 122 / 67 (auto/); mlc 04:02 Pulse 68 MON; Pulse Ox 97% ; mlc 04:06 Pulse 68 MON; Pulse Ox 98% ; mlc 04:06 BP 151 / 87 (auto/); mlc 04:11 BP 151 / 79 (auto/); mlc 04:12 BP 156 / 72 (auto/); mlc 04:12 Pulse 70 MON; Pulse Ox 98% ; mlc 04:13 Pulse 72 MON; Pulse Ox 97% ; mlc 04:16 BP 156 / 72 (auto/); mlc 04:17 Pulse 76 MON; Pulse Ox 98% ; mlc 04:21 BP 143 / 74 (auto/); mlc 04:22 Pulse 76 MON; Pulse Ox 97% ; mlc 04:26 BP 139 / 68 (auto/); mlc 04:27 Pulse 78 MON; Pulse Ox 97% ; mlc 04:31 BP 129 / 60 (auto/); mlc 04:32 Pulse 74 MON; Pulse Ox 97% ; mlc 04:36 BP 134 / 63 (auto/); mlc 04:37 Pulse 74 MON; Pulse Ox 97% ; mlc 04:41 BP 125 / 58 (auto/); mlc 04:42 Pulse 72 MON; Pulse Ox 97% ; mlc 04:46 BP 127 / 62 (auto/); mlc 04:47 Pulse 74 MON; Pulse Ox 97% ; mlc 04:51 BP 129 / 61 (auto/); mlc 04:52 Pulse 74 MON; Pulse Ox 96% ; mlc 04:56 BP 118 / 58 (auto/); mlc 04:57 Pulse 72 MON; Pulse Ox 97% ; mlc 05:01 BP 118 / 60 (auto/); mlc 05:02 Pulse 72 MON; Pulse Ox 97% ; mlc 05:06 BP 117 / 58 (auto/); mlc 05:07 Pulse 72 MON; Pulse Ox 97% ; mlc 05:11 BP 120 / 59 (auto/); mlc 05:12 Pulse 70 MON; Pulse Ox 97% ; mlc 05:16 BP 124 / 57 (auto/); mlc 05:17 Pulse 70 MON; Pulse Ox 97% ; mlc 05:21 BP 125 / 57 (auto/); mlc 05:22 Pulse 70 MON; Pulse Ox 96% ; mlc 05:26 BP 124 / 58 (auto/); mlc 05:27 Pulse 72 MON; Pulse Ox 97% ; mlc 05:31 BP 112 / 56 (auto/); mlc 05:32 Pulse 70 MON; Pulse Ox 97% ; mlc 05:36 BP 129 / 64 (auto/); mlc 05:37 Pulse 42 MON; Pulse Ox 97% ; mlc 05:39 Pulse 70 MON; Pulse Ox 97% ; mlc 05:41 BP 134 / 71 (auto/); mlc 05:42 Pulse 70 MON; Pulse Ox 97% ; mlc 05:46 BP 128 / 63 (auto/); mlc 05:47 Pulse 76 MON; Pulse Ox 97% ; mlc 05:51 BP 126 / 62 (auto/); mlc 05:52 Pulse 74 MON; Pulse Ox 96% ; mlc 05:56 BP 130 / 63 (auto/); mlc 05:57 Pulse 72 MON; Pulse Ox 95% ; mlc 06:06 BP 132 / 74 (auto/); mlc 06:06 Pulse 80 MON; Pulse Ox 97% ; mlc 06:11 Pulse 76 MON; Pulse Ox 94% ; mlc 06:11 BP 118 / 59 (auto/); mlc 06:16 BP 116 / 56 (auto/); mlc 06:17 Pulse 74 MON; Pulse Ox 93% ; mlc 06:18 Pulse 72 MON; Pulse Ox 93% ; mlc 06:21 BP 106 / 56 (auto/); mlc 06:22 Pulse 66 MON; Pulse Ox 94% ; mlc 06:26 Pulse 72 MON; Pulse Ox 95% ; mlc 06:26 BP 104 / 52 (auto/); mlc 06:29 BP 100 / 62 (auto/); mlc 06:30 Pulse 86 MON; Pulse Ox 96% ; mlc 06:31 BP 105 / 55 (auto/); mlc 06:32 Pulse 76 MON; Pulse Ox 97% ; mlc 06:36 BP 102 / 58 (auto/); mlc 06:36 Pulse 76 MON; Pulse Ox 97% ; mlc 06:45 BP 125 / 66 (auto/); mlc 06:48 Pulse 72 MON; Pulse Ox 96% ; mlc 07:16 BP 103 / 54 (auto/); ml6 07:16 Pulse 72 MON; Resp 16; Pulse Ox 96% on R/A; ml6 07:31 BP 108 / 59 (auto/); ml6 07:31 Pulse 68 MON; Resp 16; Pulse Ox 97% on R/A; ml6 07:36 Weight 61.14 kg / 134.79 lbs (R); Height 5 ft. (152.40 cm); ml6 07:36 BP 101 / 59 (auto/); ml6 07:36 Pulse 68 MON; Resp 16; Pulse Ox 94% on R/A; ml6 08:32 BP 166 / 78 (auto/); Pulse 74; Resp 16; Pulse Ox 98% on R/A; ml6 09:32 BP 139 / 69 (auto/); ml6 09:32 Pulse 72 MON; Resp 18; Pulse Ox 98% on R/A; ml6 09:47 BP 126 / 62 (auto/); ml6 09:47 Pulse 70 MON; Resp 16; Pulse Ox 98% on R/A; ml6 10:02 BP 124 / 62 (auto/); ml6 10:02 Pulse 70 MON; Resp 16; Pulse Ox 98% on R/A; Pain 0/10; ml6 10:17 BP 124 / 66 (auto/); ml6 10:17 Pulse 70 MON; Resp 16; Pulse Ox 97% on R/A; ml6 10:32 BP 129 / 68 (auto/); ml6 10:32 Pulse 72 MON; Resp 16; Pulse Ox 97% on R/A; ml6 10:47 BP 129 / 58 (auto/); ml6 10:47 Pulse 76 MON; Resp 16; Pulse Ox 98% ; ml6 11:02 BP 148 / 66 (auto/); ml6 11:02 Pulse 70 MON; Resp 16; Pulse Ox 96% on R/A; ml6 11:32 BP 106 / 56 (auto/); ml6 11:32 Pulse 74 MON; Resp 16; Pulse Ox 96% on R/A; ml6 11:47 BP 105 / 55 (auto/); ml6 11:47 Pulse 74 MON; Resp 16; Pulse Ox 97% on R/A; ml6 12:02 BP 104 / 55 (auto/); ml6 12:02 Pulse 72 MON; Resp 6; Pulse Ox 97% on R/A; ml6 12:17 BP 104 / 55 (auto/); ml6 12:17 Pulse 72 MON; Resp 16; Temp 97.8(O); Pulse Ox 96% on R/A; Pain 0/10; ml6 07:36 Body Mass Index 26.33 (61.14 kg, 152.40 cm) ml6 MDM: 02:18 CT Head Without Contrast Ordered. EDMS 02:37 IV Saline Lock ordered. cs11 02:37 Dexamethasone 6 mg IV at bolus once ordered. cs11 02:38 CBC Ordered. EDMS 02:38 MED Profile Ordered. EDMS 02:38 Pt & Aptt Ordered. EDMS 02:40 Tibia/Fibula Ordered. EDMS 02:40 BED REQUEST+ADM ordered. EDMS 02:58 Financial registration complete. hs2 02:59 MRI Screening Tool - Place on chart, inform RN ordered. cs11 02:59 MRI Screening Tool - Place on chart, inform RN complete. ml3 03:00 -MRA-Brain without contrast Ordered. EDMS 03:00 -MRI-Brain without Ordered. EDMS 03:08 niCARdipine 5 mg/hr IV at 25 mL/hr continuous; pre-mix in 40mg/200mL bag ordered. mlc 03:33 NS 0.9% 500 ml IV at bolus once ordered. mlc 03:39 [facility] Payment Agreement was scanned into [employer] and attached to record. hs2 04:18 niCARdipine 1 mg/hr IV at 25 mL/hr continuous; pre-mix in 40mg/200mL bag ordered. mlc 06:45 Apply Air Cast to Patient. ordered. cs11 08:52 CT Spine,Cervical W/o Contrast Ordered. EDMS 08:52 CT Spine,Thoracic W/o Contrast Ordered. EDMS 08:52 CT Spine, Lumbar W/o Contrast Ordered. EDMS 09:13 Admission / Observation Status ordered. EDMS 09:13 NPO DIET ordered. EDMS 09:18 Misc. Nursing Order ordered. sd1 11:39 CT ANGIO HEAD Ordered. EDMS 11:39 CT ANGIO HEAD Ordered. EDMS Administered Medications: 02:59 Drug: Dexamethasone 6 mg [dexamethasone 4 mg/mL injection solution] Route: IV; Rate: mlc bolus; Site: left antecubital; 02:59 Drug: niCARdipine 5 mg/hr [nicardipine 40 mg/200 mL in sodium chloride(iso) intravenous mlc piggyback] Route: IV; Rate: 25 mL/hr; Site: left antecubital; 03:16 Follow up: Rate change 2 mg/hr mlc 03:17 Follow up: IV Status: Infusion discontinued mlc 03:07 CANCELLED (Other Intervention Used): niCARdipine (CVA, 25mg/250mL NS) 5 mg/hr IV at mlc calculated rate continuous; Titrate 2.5mg/hr q5min to keep SBP 140-185mmHg. Max rate 15mg/hr 03:33 Drug: NS 0.9% 500 ml [sodium chloride 0.9 % intravenous solution] Route: IV; Rate: mlc bolus; Site: left antecubital; 04:09 Follow up: IV Status: Completed infusion mlc 04:18 Drug: niCARdipine 1 mg/hr [nicardipine 40 mg/200 mL in sodium chloride(iso) intravenous mlc piggyback] Route: IV; Rate: 25 mL/hr; Site: left antecubital; Signatures: Dispatcher [employer] EDMS Meryl Amador MD MD sd1 Jocelynn Gavin, [facility] lbd Ida KeeAmeliaKaren, [facility] ml3 Tea SingerRN RN lf1 Romeo Rios RN RN ml6 Emeterio Smith, DO DO cs11 Rere Carballo RN RN mlc Anila Mir, Reg Reg hs2 The chart was reviewed and I authenticate all verbal orders and agree with the evaluation and treatment provided.Corrections: (The following items were deleted from the chart) 03:07 02:37 niCARdipine (CVA, 25mg/250mL NS) 5 mg/hr IV at calculated rate continuous; mlc Titrate 2.5mg/hr q5min to keep SBP 140-185mmHg. Max rate 15mg/hr ordered. cs11 03:07 03:03 niCARdipine (CVA, 25mg/250mL NS) 5 mg/hr IV at calculated rate continuous; mlc Titrate 2.5mg/hr q5min to keep SBP 140-185mmHg. Max rate 15mg/hr ordered. mlc Attachments: 03:39 [facility] [place] Agreement hs2 MTDD
[2016-03-05] MEDS: D5W/0.45% SODIUM CHLORIDE 1,000 ML IV SCH (13:30)
[2016-03-05] MEDS: PANTOPRAZOLE 40MG INJ (PROTONIX) (C9113) IV SCH (15:36)
[2016-03-05] MEDS ORDERED: SLF 3 ML SYR IV PRN (15:45)
--- NOTE | 2016-03-05 18:28 | REP ---
Clinical: Follow up hemorrhagic infarction. Comparison: 03/05/2016. Findings: A large hemorrhagic infarction is identified involving the left basal ganglia which appears to have increased in size from prior examination currently measuring approximately 3.5 cm with small amount of surrounding vasogenic edema and approximately 5 mm of contralateral midline shift. Layering hemorrhage within the occipital horns to the bilateral lateral ventricles is appreciated and appears relatively decreased compared to prior examination. Atrophic changes involving the bilateral ventricles and sulci appear relatively symmetric and similar to prior examination without obvious evidence to suggest obstructive hydrocephalus at the time of imaging. No extra-axial fluid collection is identified. No new focus of hemorrhage or infarction is identified. Calvarium is intact. Impression: 1. The hemorrhagic infarct involving the left basal ganglia appears to have increased in size currently measuring approximately 3.5 cm maximal diameter with surrounding vasogenic edema and 5 mm of contralateral midline shift. 2. Small amount of layering hemorrhage in the posterior horns of the bilateral lateral ventricles appears overall decreased compared to prior examination. 3. No new acute area of hemorrhage or infarction identified. Signed by Seng Schneider MD 03/05/2016 06:18 P
[2016-03-05] MEDS ORDERED: SODIUM CHLORIDE 0.9% 1000 ML IV ONE (19:00)
--- NOTE | 2016-03-05 20:16 | REP ---
CT lumbosacral spine without contrast 03/05/2016 Indication: Trauma, 85-year-old female Technique: 4 mm reconstructed spiral axial sections performed of the lumbosacral spine from inferior body T 11 through lower sacrum. Sagittal and coronal reconstructed images were also created. Comparison of LSS series 03/24/2013 Findings: Old compression fractures are noted T12, L1 L 2 , L 3, L4 yet with progression/diminished vertebral body height when compared with since lumbosacral spine series 03/24/2013. There is no acute fracture or retropulsion. There is 60% diminished vertebral body height noted anteriorly at T12, and to a lesser extent the remainder of the vertebral bodies as described. Osteoarthritis is noted at nearly all levels. The included portions of the sacrum and left SI joint are intact. Atherosclerotic changes are noted in the ectatic tortuous abdominal aorta and ectasia of the common iliac arteries with atherosclerotic changes . There is no visualized retroperitoneal hematoma. Impression: Multiple old compression fractures in lower thoracic and lumbar spine, with sparing at L5. No acute fracture or paraspinal hematoma. 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 Signed by Sravanthi Whittaker MD 03/05/2016 08:07 P
[2016-03-05] MEDS: SLF 3 ML SYR IV SCH (22:15)
[2016-03-06] VITALS (40 sets, daily range): BP systolic 119–175; BP diastolic 56–87
[2016-03-06] MEDS: MORPHINE 2 MG/ML 1ML SYRINGE IV PRN ×4 (03:23→20:37)
[2016-03-06] MEDS: D5W/0.45% SODIUM CHLORIDE 1,000 ML IV SCH (03:23)
[2016-03-06 04:36] LABS: MEAN CORPUSCULAR HEMOGLOBIN 23.9 pg (27.0-33.0); MEAN CORPUSCULAR HGB CONC 31.9 g/dl (32.0-36.5); MEAN CORPUSCULAR VOLUME 74.9 fl (80.0-96.0); RED CELL DISTRIBUTION WIDTH 17.7 % (11.5-14.5); WHITE BLOOD COUNT 18.4 K/mm3 (4.0-10.0)
[2016-03-06 05:02] LABS: ALBUMIN 2.9 GM/DL (3.2-5.2); ALBUMIN/GLOBULIN RATIO 1.16 (1.00-1.93); ALKALINE PHOSPHATASE 118 U/L (45-117); ALT/SGPT 17 U/L (12-78); ANION GAP 10 MEQ/L (8-16); AST/SGOT 22 U/L (15-37); BILIRUBIN,TOTAL 1.4 MG/DL (0.2-1.0); BLOOD UREA NITROGEN 19 MG/DL (7-18); CALCIUM LEVEL 7.5 MG/DL (8.8-10.2); CARBON DIOXIDE LEVEL 25 MEQ/L (21-32); CHLORIDE LEVEL 108 MEQ/L (98-107); CREATININE FOR GFR 0.74 MG/DL (0.55-1.02); GLOMERULAR FILTRATION RATE > 60.0 (>32); GLUCOSE, FASTING 107 MG/DL (83-110); SODIUM LEVEL 143 MEQ/L (136-145); TOTAL PROTEIN 5.4 GM/DL (6.4-8.2)
[2016-03-06] MEDS: SLF 3 ML SYR IV SCH ×3 (06:06→22:00)
[2016-03-06] MEDS ORDERED: cloNIDine HCL 0.1 MG/24 HR PATCH TOP SCH (09:00)
--- NOTE | 2016-03-06 09:34 | REP ---
Clinical: Hemorrhagic cerebral infarction. Comparison: 03/05/2016. Findings: Left basal ganglia hemorrhagic infarct again measures approximately 3.5 cm maximal diameter with surrounding edema and mild contralateral midline shift of approximately 3 mm -- all of which appears similar to prior examination. There is increasing layering hemorrhage in the occipital horns of the lateral ventricles bilaterally without evidence for obstructive hydrocephalus and relatively similar symmetric appearance with regards to atrophy and ventriculomegaly. A small area of increased density involving the right frontoparietotemporal region (images 11 - 15) may represent a new small area of her hemorrhagic infarction. Remainder examination appears relatively stable. Impression: Stable appearance to the hemorrhagic infarction in the left basal ganglia. Layering hemorrhage in the lateral ventricles. Possible new area of small hemorrhagic infarction in the right frontoparietal/temporal region. Signed by Seng Schneider MD 03/06/2016 09:25 A
[2016-03-06] MEDS: KCL 40MEQ IN D5/0.45NS 1000ML 1,000 ML IV SCH (10:35)
--- NOTE | 2016-03-06 12:17 | CCN ---
DATE: 03/06/2016 CRITICAL CARE NOTE This is hospital day #2. The patient is in the intensive care unit. She is responsive to voice. Charlotte coma scale is about 9. There were few neurologic changes through the night. Temperature is 98, pulse rate 65, respirations 18, blood pressure 123/60 off nicardipine drip. Oxygen saturations are acceptable at 2 liters per minute via nasal cannula. Intake and output for the past 24 hours: 1260 in, 210 out. Since midnight, 600 in and 355 out. At bedside, she is ill appearing. She does respond to voice, withdraws from pain. There is no movement on the right side. Purposeful movement on the left. HEENT: Oral mucosa is pink , moist. No stridor. No jugular venous distension or carotid bruit. Heart: Sounds are regular without appreciable murmur. Breath sounds coarse clear. Abdomen is soft with intact bowel sounds. Extremities are cool. Pulses diminished but palpable. Nails are not clubbed. DIAGNOSTIC STUDIES: Her head CT last evening showed a slight increase in the size of the intracranial hemorrhage with a slight. Repeat CT scan this morning shows no change from last night. Her sodium is 143, potassium 3.0, chloride 108, CO2 25, BUN 19, creatinine 0.7, glucose 107, white cell count is 18.4, hemoglobin 11.2, hematocrit 35.3, platelet count 111,000. Sodium is 143, potassium 3.0, chloride 108, CO2 25, BUN 19, creatinine 0.74, glucose 107, bilirubin is 1.4. The primary problem requiring critical attention is a hypertensive crisis with acute intracranial hemorrhage. CT scan is stable since last night. Will begin a low dose of Catapres topically and attempt to wean off nicardipine; the drug has been on and off over the past 24 hours. I appreciate neurosurgical evaluation. It would appear that the patient is not an optimal candidate for surgery. Hypokalemia. Will replace and recheck. The patient's condition remains critical. Prognosis is guarded. 78 minutes was spent in the provision of bedside critical care and coordination. [facility]
[2016-03-06] MEDS: PANTOPRAZOLE 40MG INJ (PROTONIX) (C9113) IV SCH (14:36)
[2016-03-07] VITALS (32 sets, daily range): BP systolic 109–153; BP diastolic 55–82
[2016-03-07] MEDS: KCL 40MEQ IN D5/0.45NS 1000ML 1,000 ML IV SCH ×2 (02:28→21:09)
[2016-03-07 04:45] LABS: MEAN CORPUSCULAR HEMOGLOBIN 23.6 pg (27.0-33.0); MEAN CORPUSCULAR HGB CONC 31.3 g/dl (32.0-36.5); MEAN CORPUSCULAR VOLUME 75.6 fl (80.0-96.0); RED CELL DISTRIBUTION WIDTH 17.7 % (11.5-14.5); WHITE BLOOD COUNT 18.9 K/mm3 (4.0-10.0)
[2016-03-07 05:05] LABS: ALBUMIN/GLOBULIN RATIO 1.07 (1.00-1.93); ALKALINE PHOSPHATASE 128 U/L (45-117); ALT/SGPT 18 U/L (12-78); ANION GAP 10 MEQ/L (8-16); AST/SGOT 25 U/L (15-37); BILIRUBIN,TOTAL 1.6 MG/DL (0.2-1.0); BLOOD UREA NITROGEN 15 MG/DL (7-18); CALCIUM LEVEL 7.6 MG/DL (8.8-10.2); CARBON DIOXIDE LEVEL 25 MEQ/L (21-32); CHLORIDE LEVEL 106 MEQ/L (98-107); CREATININE FOR GFR 0.66 MG/DL (0.55-1.02); GLOMERULAR FILTRATION RATE > 60.0 (>32); GLUCOSE, FASTING 108 MG/DL (83-110); POTASSIUM SERUM 3.5 MEQ/L (3.5-5.1); SODIUM LEVEL 141 MEQ/L (136-145); TOTAL PROTEIN 5.8 GM/DL (6.4-8.2)
[2016-03-07] MEDS: SLF 3 ML SYR IV SCH ×3 (05:12→21:18)
--- NOTE | 2016-03-07 12:04 | REP ---
Clinical: Confirmation of kangaroo tube placement. Technique: Portable semiupright chest x-ray. Comparison: 06/13/2014. Findings: A tube is identified overlying the mediastinum extending below the level of the diaphragm in the midline abdomen. Mediastinum and cardiac silhouette are stable with mild cardiomegaly suggested. Lung kerr demonstrate chronic interstitial changes and trace left basilar atelectasis cannot be excluded. Skeletal structures demonstrate osteopenia and degenerative changes including mild compression deformity at T12. Impression: Tube overlies the mediastinum and extends below the level of diaphragm. Chronic changes with possible left basilar atelectasis. Compression fracture at T12 likely chronic. Signed by Seng Schneider MD 03/07/2016 11:55 A
[2016-03-07] MEDS: niCARdipine 20 MG CAP PO SCH ×2 (14:00→21:08)
--- NOTE | 2016-03-07 14:00 | EDDOCDS ---
Nurse's Notes [facility] Name: Flavio Perkins Age: 85 yrs Sex: Female : 1930 Arrival Date: 03/05/2016 Time: 02:03 Bed Admit Hold Private MD: Cleve Gómez Diagnosis: Aphasia following nontraumatic intracerebral hemorrhage Presentation: 03/05 02:07 Presenting complaint: EMS states: pt found on floor by staff at approx 01:15. right mlc sided weakness and garbled speech. unknown last well time. The last date and time the patient was known to be well was was at an unknown time on an unknown date. An acute neurological deficit is present. The charge nurse has been notified. The patient has been moved to a treatment area. The patients blood glucose was checked before arriving to the hospital and was found to be normal. Adult Sepsis Screening: Suicide/Homicide risk assessment- Unable to assess. Status: Patient is not a restaurant service manager or dependent. Transition of care: patient was received from [facility]-assisted. 02:07 Acuity: [place] 2 [facility] Method Of Arrival: [place] [facility] [place] Adult Sepsis Screening: Patient has new or worsening altered mentation (1 point). mlc Patient's respiratory rate is less than 22. Systolic blood pressure is greater than 100. Patient has a qSOFA score of 1- Negative Sepsis Screen. Triage Assessment: 02:15 The onset of the patients symptoms was less than three hours ago. General: Appears in mlc no apparent distress, Behavior is cooperative. General:. Pain: Denies pain. The patient is triaged at the bedside. See Assessment in Nurses Notes section of ED record. Neurological: Level of Consciousness is awake, obeys commands, Oriented to person, Security Operations Analyst are weak on right Weakness in right arm(s) Speech is slurred, Facial droop on right, tongue shifts to right side . Pupils are PERRLA, Reports no additional symptoms. Cardiovascular: Heart tones S1 S2 present Chest pain is denied. Respiratory: Airway is patent Respiratory effort is even, unlabored, Respiratory pattern is regular, Breath sounds are clear bilaterally. GI: Abdomen is non- distended Bowel sounds present X 4 quads. Derm: Skin is pale. Musculoskeletal: Swelling absent other right ankle, pt flinches when right ankle is touched. Historical: - Allergies: No known drug Allergies; - Home Meds: 1. aspirin 81 mg Oral TbEC once daily (Last dose: 03/04/2016 08:28) 2. atenolol 25 mg Oral tab 1 tab once daily (Last dose: 03/04/2016 08:28) 3. Klor-Con Sprinkle 10 mEq oral cpER 1 cap once daily (Last dose: 03/04/2016 08:28) - PMHx: disorder magnesium metabolism; essential hypertension; liver cirrhosis; TIA; Hypokalemia; Portal hypertension; Chronic Low Back Pain; Hemochromatosis; - PSHx: Cholecystectomy; Appendectomy; Hysterectomy; Thyroidectomy; - Social history: Smoking status: unknown if patient ever smoked tobacco. Patient is speech impaired. - Family history: Not pertinent. - : The pt / caregiver states he / she is not on anticoagulants. Home medication list is obtained from the facility MAR. - Exposure Risk Screening:: None identified. Screenin:17 Screening information is obtained from the patient, residence staff. Fall risk: At risk mlc due to age, gait disturbance, injury, prior history of falls. Assistance ADL's: Requires assistance with meal preparation, this assistance is provided by residence staff, bathing, assistance is provided by residence staff, dressing, assistance is provided by residence staff, toileting, assistance is provided by residence staff, housework, assistance is provided by residence staff, medication administration, assistance is provided by residence staff. Abuse/DV Screen: The patient / caregiver reports he/she is: pt cannot be assessed for living situation at this time. Nutritional screening: No deficits noted. home support is adequate. 02:19 Advance Directives: There is an active DNR order and the pt has a copy here at this lf1 time. Assessment: 02:19 General: pt keeping right arm at 90 degree angle, doesn't not move it . mlc 03:04 Reassessment: Patient appears in no apparent distress at this time. Patient states mlc symptoms have not improved. IV fluids infusing per order, pt resting in bed. pt able to answer yes or no questions, responds to name. 03:17 Reassessment: Patient appears in no apparent distress at this time. Patient states mlc symptoms have not improved. pt returned from x-ray. Dr. Smith made aware of BP, infusion discontinued at this time. . 04:19 Reassessment: Patient appears in no apparent distress at this time. pt resting mlc comfortably. no changes since prior. resp easy/unlabored. . Respiratory: Breath sounds are clear bilaterally. 05:11 General: Appears in no apparent distress, comfortable. General: pt resting with eyes mlc closed . Respiratory: Airway is patent Respiratory effort is even, unlabored, Respiratory pattern is regular. 05:41 General: Appears in no apparent distress, comfortable, to be sleeping. mlc 06:50 General: Appears in no apparent distress, comfortable. General: pt cleaned and new mlc linens applied. pt able to roll from side to side with minimal assistance. . Neurological: Level of Consciousness is awake, obeys commands, Oriented to person, Speech is slurred. Respiratory: Airway is patent Respiratory effort is even, unlabored, Respiratory pattern is regular. 07:10 General: Appears in no apparent distress. Pain: Denies pain. Neurological: Level of ml6 Consciousness is awake, alert, Oriented to person, place, Security Operations Analyst are weak on right Weakness in right in bilateral hand's) arm(s) leg(s) foot/feet Speech is slurred, with expressive aphasia noted, Facial droop on right, Pupils are PERRLA. Cardiovascular: No deficits noted. Capillary refill < 3 seconds is brisk in bilateral fingers toes. Respiratory: No deficits noted. Airway is patent Respiratory effort is even, unlabored, Respiratory pattern is regular, symmetrical, Breath sounds are clear bilaterally. 08:10 Reassessment: Patient appears in no apparent distress at this time. Patient denies pain ml6 at this time. Patient states symptoms have not improved. no change from previous assessment, patient answers yes no questions appropriately. 09:16 Reassessment: Patient appears in no apparent distress at this time. Patient denies pain ml6 at this time. Patient states symptoms have not improved. no change from previous assessment. 10:00 General: Appears in no apparent distress, comfortable. Pain: Denies pain. Neurological: ml6 Level of Consciousness is awake, alert, Oriented to person, place, Speech with expressive aphasia noted. Cardiovascular: No deficits noted. Capillary refill < 3 seconds is brisk in bilateral fingers toes. Respiratory: No deficits noted. Airway is patent Respiratory effort is even, unlabored, Respiratory pattern is regular, symmetrical. 11:00 Reassessment: Patient appears in no apparent distress at this time. Patient denies pain ml6 at this time. Patient states symptoms have not improved. patient sleeping soundly resp unlabored. 12:00 Reassessment: Patient appears in no apparent distress at this time. Patient denies pain ml6 at this time. Patient states symptoms have not improved. 12:58 General: Appears in no apparent distress. Pain: Denies pain. Neurological: Weakness in ml6 right in bilateral hand's) arm(s) leg(s) foot/feet Speech with expressive aphasia noted. Cardiovascular: No deficits noted. Vital Signs: 02:17 BP 202 / 95 (auto/); mlc 02:18 Pulse 70 MON; Pulse Ox 97% ; mlc 02:19 BP 198 / 94 LA Supine (auto/reg); Pulse 71 MON; Resp 20 S; Temp 98.6(TE); Pulse Ox 98% cln on 2 lpm NC; 02:32 Pulse 68 MON; Pulse Ox 96% ; mlc 02:32 BP 187 / 88; mlc 02:32 BP 187 / 88 (auto/); mlc 02:33 Pulse 66 MON; Pulse Ox 96% ; mlc 02:46 Pulse 66 MON; Pulse Ox 96% ; mlc 02:46 BP 179 / 84 (auto/); mlc 02:53 BP 183 / 80 (auto/); mlc 02:54 Pulse 66 MON; Pulse Ox 97% ; mlc 02:56 Pulse 68 MON; Pulse Ox 97% ; mlc 02:56 BP 172 / 80 (auto/); mlc 03:01 BP 161 / 75 (auto/); mlc 03:02 Pulse 68 MON; Pulse Ox 96% ; mlc 03:06 Pulse 70 MON; Pulse Ox 91% ; mlc 03:06 BP 152 / 70 (auto/); mlc 03:11 BP 123 / 59 (auto/); mlc 03:12 Pulse 70 MON; Pulse Ox 92% ; mlc 03:16 BP 118 / 54 (auto/); mlc 03:17 Pulse 66 MON; Pulse Ox 94% ; mlc 03:20 BP 107 / 57 (auto/); mlc 03:20 Pulse 68 MON; Pulse Ox 88% ; mlc 03:22 Pulse 66 MON; Pulse Ox 96% ; mlc 03:26 BP 97 / 51 (auto/); mlc 03:27 Pulse 64 MON; Pulse Ox 95% ; mlc 03:31 BP 99 / 56 (auto/); mlc 03:32 Pulse 64 MON; Pulse Ox 93% ; mlc 03:36 BP 113 / 59 (auto/); mlc 03:37 Pulse 68 MON; Pulse Ox 95% ; mlc 03:41 BP 113 / 59 (auto/); mlc 03:42 Pulse 68 MON; Pulse Ox 97% ; mlc 03:46 BP 113 / 63 (auto/); mlc 03:47 Pulse 68 MON; Pulse Ox 96% ; mlc 03:51 BP 117 / 66 (auto/); mlc 03:52 Pulse 68 MON; Pulse Ox 97% ; mlc 03:56 BP 115 / 65 (auto/); mlc 03:57 Pulse 68 MON; Pulse Ox 97% ; mlc 04:01 BP 122 / 67 (auto/); mlc 04:02 Pulse 68 MON; Pulse Ox 97% ; mlc 04:06 Pulse 68 MON; Pulse Ox 98% ; mlc 04:06 BP 151 / 87 (auto/); mlc 04:11 BP 151 / 79 (auto/); mlc 04:12 BP 156 / 72 (auto/); mlc 04:12 Pulse 70 MON; Pulse Ox 98% ; mlc 04:13 Pulse 72 MON; Pulse Ox 97% ; mlc 04:16 BP 156 / 72 (auto/); mlc 04:17 Pulse 76 MON; Pulse Ox 98% ; mlc 04:21 BP 143 / 74 (auto/); mlc 04:22 Pulse 76 MON; Pulse Ox 97% ; mlc 04:26 BP 139 / 68 (auto/); mlc 04:27 Pulse 78 MON; Pulse Ox 97% ; mlc 04:31 BP 129 / 60 (auto/); mlc 04:32 Pulse 74 MON; Pulse Ox 97% ; mlc 04:36 BP 134 / 63 (auto/); mlc 04:37 Pulse 74 MON; Pulse Ox 97% ; mlc 04:41 BP 125 / 58 (auto/); mlc 04:42 Pulse 72 MON; Pulse Ox 97% ; mlc 04:46 BP 127 / 62 (auto/); mlc 04:47 Pulse 74 MON; Pulse Ox 97% ; mlc 04:51 BP 129 / 61 (auto/); mlc 04:52 Pulse 74 MON; Pulse Ox 96% ; mlc 04:56 BP 118 / 58 (auto/); mlc 04:57 Pulse 72 MON; Pulse Ox 97% ; mlc 05:01 BP 118 / 60 (auto/); mlc 05:02 Pulse 72 MON; Pulse Ox 97% ; mlc 05:06 BP 117 / 58 (auto/); mlc 05:07 Pulse 72 MON; Pulse Ox 97% ; mlc 05:11 BP 120 / 59 (auto/); mlc 05:12 Pulse 70 MON; Pulse Ox 97% ; mlc 05:16 BP 124 / 57 (auto/); mlc 05:17 Pulse 70 MON; Pulse Ox 97% ; mlc 05:21 BP 125 / 57 (auto/); mlc 05:22 Pulse 70 MON; Pulse Ox 96% ; mlc 05:26 BP 124 / 58 (auto/); mlc 05:27 Pulse 72 MON; Pulse Ox 97% ; mlc 05:31 BP 112 / 56 (auto/); mlc 05:32 Pulse 70 MON; Pulse Ox 97% ; mlc 05:36 BP 129 / 64 (auto/); mlc 05:37 Pulse 42 MON; Pulse Ox 97% ; mlc 05:39 Pulse 70 MON; Pulse Ox 97% ; mlc 05:41 BP 134 / 71 (auto/); mlc 05:42 Pulse 70 MON; Pulse Ox 97% ; mlc 05:46 BP 128 / 63 (auto/); mlc 05:47 Pulse 76 MON; Pulse Ox 97% ; mlc 05:51 BP 126 / 62 (auto/); mlc 05:52 Pulse 74 MON; Pulse Ox 96% ; mlc 05:56 BP 130 / 63 (auto/); mlc 05:57 Pulse 72 MON; Pulse Ox 95% ; mlc 06:06 BP 132 / 74 (auto/); mlc 06:06 Pulse 80 MON; Pulse Ox 97% ; mlc 06:11 Pulse 76 MON; Pulse Ox 94% ; mlc 06:11 BP 118 / 59 (auto/); mlc 06:16 BP 116 / 56 (auto/); mlc 06:17 Pulse 74 MON; Pulse Ox 93% ; mlc 06:18 Pulse 72 MON; Pulse Ox 93% ; mlc 06:21 BP 106 / 56 (auto/); mlc 06:22 Pulse 66 MON; Pulse Ox 94% ; mlc 06:26 Pulse 72 MON; Pulse Ox 95% ; mlc 06:26 BP 104 / 52 (auto/); mlc 06:29 BP 100 / 62 (auto/); mlc 06:30 Pulse 86 MON; Pulse Ox 96% ; mlc 06:31 BP 105 / 55 (auto/); mlc 06:32 Pulse 76 MON; Pulse Ox 97% ; mlc 06:36 BP 102 / 58 (auto/); mlc 06:36 Pulse 76 MON; Pulse Ox 97% ; mlc 06:45 BP 125 / 66 (auto/); mlc 06:48 Pulse 72 MON; Pulse Ox 96% ; mlc 07:16 BP 103 / 54 (auto/); ml6 07:16 Pulse 72 MON; Resp 16; Pulse Ox 96% on R/A; ml6 07:31 BP 108 / 59 (auto/); ml6 07:31 Pulse 68 MON; Resp 16; Pulse Ox 97% on R/A; ml6 07:36 Weight 61.14 kg (R); Height 5 ft. (152.40 cm); ml6 07:36 BP 101 / 59 (auto/); ml6 07:36 Pulse 68 MON; Resp 16; Pulse Ox 94% on R/A; ml6 08:32 BP 166 / 78 (auto/); Pulse 74; Resp 16; Pulse Ox 98% on R/A; ml6 09:32 BP 139 / 69 (auto/); ml6 09:32 Pulse 72 MON; Resp 18; Pulse Ox 98% on R/A; ml6 09:47 BP 126 / 62 (auto/); ml6 09:47 Pulse 70 MON; Resp 16; Pulse Ox 98% on R/A; ml6 10:02 BP 124 / 62 (auto/); ml6 10:02 Pulse 70 MON; Resp 16; Pulse Ox 98% on R/A; Pain 0/10; ml6 10:17 BP 124 / 66 (auto/); ml6 10:17 Pulse 70 MON; Resp 16; Pulse Ox 97% on R/A; ml6 10:32 BP 129 / 68 (auto/); ml6 10:32 Pulse 72 MON; Resp 16; Pulse Ox 97% on R/A; ml6 10:47 BP 129 / 58 (auto/); ml6 10:47 Pulse 76 MON; Resp 16; Pulse Ox 98% ; ml6 11:02 BP 148 / 66 (auto/); ml6 11:02 Pulse 70 MON; Resp 16; Pulse Ox 96% on R/A; ml6 11:32 BP 106 / 56 (auto/); ml6 11:32 Pulse 74 MON; Resp 16; Pulse Ox 96% on R/A; ml6 11:47 BP 105 / 55 (auto/); ml6 11:47 Pulse 74 MON; Resp 16; Pulse Ox 97% on R/A; ml6 12:02 BP 104 / 55 (auto/); ml6 12:02 Pulse 72 MON; Resp 6; Pulse Ox 97% on R/A; ml6 12:17 BP 104 / 55 (auto/); ml6 12:17 Pulse 72 MON; Resp 16; Temp 97.8(O); Pulse Ox 96% on R/A; Pain 0/10; ml6 07:36 Body Mass Index 26.33 (61.14 kg, 152.40 cm) ml6 Vitals: 02:15 Glucose Measurement D-stick done by EMS. Log In Time N/A - ambulance arrival. mlc ED Course: 02:04 Patient visited by Leilani Kee, Diorama Model Maker. ml3 02:04 Cleve Gómez is Private Physician. ml3 02:04 Rere Carballo RN is Primary Nurse. ml3 02:04 Patient moved to Waiting ml3 02:04 Patient moved to 11 ml3 02:12 Triage Initiated mlc 02:17 Emeterio Smith DO is Attending Physician. cs11 02:17 Patient visited by Emeterio Smith DO. cs11 02:17 The patient / caregiver is instructed regarding the plan of care and ED course. mlc 02:19 Patient visited by Rere Carballo RN. mlc 02:19 Unable to orient pt to ED due to medical condition. Patient has correct armband on for cln positive identification. Placed in gown. Bed in low position. Call light in reach. Side rails up X 1. 02:20 Patient visited by Elise Dacosta PCA. cln 03:05 brazer crawler torch on. Pulse ox on. NIBP on. mlc 03:05 Maintain field IV. Dressing intact. Good blood return noted. Site clean & dry. Gauge & mlc site: 18g left AC. 03:06 Patient visited by Rere Carballo RN. mlc 03:19 Patient visited by Rere Carballo RN. mlc 03:34 Patient visited by Rere Carballo RN. mlc 03:39 [facility] Payment Agreement was scanned into [employer] and attached to record. hs2 03:40 CT Head Without Contrast Returned. EDMS 04:09 Patient visited by Rere Carballo RN. mlc 04:20 Patient visited by Rere CarballoGAVI. mlc 04:45 air cast applied to right ankle. mlc 05:06 Patient moved to OBSERVATION cs11 05:11 Patient visited by Rere Carballo,GAVI. mlc 05:41 Patient visited by Rere Carballo,GAVI. mlc 06:51 Patient visited by Rere Carballo,GAVI. mlc 06:55 Attending Physician role handed off by Emeterio Smith DO sd1 06:55 Meryl Amador MD is Attending Physician. sd1 07:40 Patient moved to MRI ml6 07:55 Patient visited by Romeo Rios, GAVI. ml6 08:27 Tibia/Fibula Returned. EDMS 08:46 Mike Rivas is Hospitalizing Provider. sd1 08:52 Primary Nurse role handed off by Rere Carballo RN jc4 08:54 Romeo Rios, GAVI is Primary Nurse. jc4 09:10 -MRI-Brain without Returned. EDMS 09:53 -MRA-Brain without contrast Returned. EDMS 10:38 CT Spine,Thoracic W/o Contrast Returned. EDMS 10:38 CT Spine,Cervical W/o Contrast Returned. EDMS 10:44 Patient moved to Admit Hold jc4 12:58 No procedures done that require assistance. ml6 03/06 10:07 T-Sheet-- Draft Copy was scanned into [employer] and attached to record. gb Administered Medications: 03/05 02:59 Drug: Dexamethasone 6 mg [dexamethasone 4 mg/mL injection solution] Route: IV; Rate: mlc bolus; Site: left antecubital; 02:59 Drug: niCARdipine 5 mg/hr [nicardipine 40 mg/200 mL in sodium chloride(iso) intravenous [facility]gyback] Route: IV; Rate: 25 mL/hr; Site: left antecubital; 03:16 Follow up: Rate change 2 mg/hr mlc 03:17 Follow up: IV Status: Infusion discontinued mlc 03:07 CANCELLED (Other Intervention Used): niCARdipine (CVA, 25mg/250mL NS) 5 mg/hr IV at mlc calculated rate continuous; Titrate 2.5mg/hr q5min to keep SBP 140-185mmHg. Max rate 15mg/hr 03:33 Drug: NS 0.9% 500 ml [sodium chloride 0.9 % intravenous solution] Route: IV; Rate: mlc bolus; Site: left antecubital; 04:09 Follow up: IV Status: Completed infusion mlc 04:18 Drug: niCARdipine 1 mg/hr [nicardipine 40 mg/200 mL in sodium chloride(iso) intravenous mlc piggyback] Route: IV; Rate: 25 mL/hr; Site: left antecubital; Order Results: Lab Order: CBC; SPEC'M 03/05/16 02:53 Test: WHITE BLOOD COUNT; Value: 15.0; Range: 4.0-10.0; Abnormal: Above high normal; Units: K/mm3; Status: F Test: RED BLOOD COUNT; Value: 5.44; Range: 4.00-5.40; Abnormal: Above high normal; Units: M/mm3; Status: F Test: HEMOGLOBIN; Value: 12.6; Range: 12.0-16.0; Units: g/dl; Status: F Test: HEMATOCRIT; Value: 39.1; Range: 36.0-47.0; Units: %; Status: F Test: MEAN CORPUSCULAR VOLUME; Value: 71.9; Range: 80.0-96.0; Abnormal: Below low normal; Units: fl; Status: F Test: MEAN CORPUSCULAR HEMOGLOBIN; Value: 23.1; Range: 27.0-33.0; Abnormal: Below low normal; Units: pg; Status: F Test: MEAN CORPUSCULAR HGB CONC; Value: 32.2; Range: 32.0-36.5; Units: g/dl; Status: F Test: RED CELL DISTRIBUTION WIDTH; Value: 19.0; Range: 11.5-14.5; Abnormal: Above high normal; Units: %; Status: F Test: PLATELET COUNT, AUTOMATED; Value: 124; Range: 150-450; Abnormal: Below low normal; Units: k/mm3; Status: F Lab Order: MED Profile; SPEC03/05/16 02:53 Test: GLUCOSE, FASTING; Value: 126; Range: 83-110; Abnormal: Above high normal; Units: MG/DL; Status: F Test: BLOOD UREA NITROGEN; Value: 17; Range: 7-18; Units: MG/DL; Status: F Test: CREATININE FOR GFR; Value: 0.80; Range: 0.55-1.02; Units: MG/DL; Status: F Test: GLOMERULAR FILTRATION RATE; Value: > 60.0; Range: >32; Status: F Test: SODIUM LEVEL; Value: 143; Range: 136-145; Units: MEQ/L; Status: F Test: POTASSIUM SERUM; Value: 3.2; Range: 3.5-5.1; Abnormal: Below low normal; Units: MEQ/L; Status: F Test: CHLORIDE LEVEL; Value: 106; Range: 98-107; Units: MEQ/L; Status: F Test: CARBON DIOXIDE LEVEL; Value: 25; Range: 21-32; Units: MEQ/L; Status: F Test: ANION GAP; Value: 12; Range: 8-16; Units: MEQ/L; Status: F Test: CALCIUM LEVEL; Value: 8.3; Range: 8.8-10.2; Abnormal: Below low normal; Units: MG/DL; Status: F Test Note: ; Units are mL/min/1.73 m2 Chronic Kidney Disease Staging per NKF: Stage I & II GFR >=60 Normal to Mildly Decreased Stage III GFR 30-59 Moderately Decreased Stage IV GFR 15-29 Severely Decreased Stage V GFR <15 Very Little GFR Left ESRD GFR <15 on LABORATORY TECHNOLOGY TEACHER Lab Order: Pt & Aptt; SPEC'M 03/05/16 02:53 Test: PROTHROMBIN TIME; Value: 19.1; Range: 12.3-14.5; Abnormal: Above high normal; Units: SECONDS; Status: F Test: INR; Value: 1.60; Status: F Test: PARTIAL THROMBOPLASTIN TIME; Value: 44.2; Range: 26.6-37.1; Abnormal: Above high normal; Units: SECONDS; Status: F Test Note: ; THERAPUTIC HUMAN INR VALUES INDICATIONS NORMAL RANGES PROPHYLAXIS/TREATMENT OF: VENOUS THROMBOSIS 2.0-3.0 PULMONARY EMBOLISM 2.0-3.0 PREVENTION OF SYSTEMIC EMBOLISM FROM: TISSUE HEART VALVES 2.0-3.0 ACUTE MYOCARDIAL INFARCTION 2.0-3.0 VALVULAR HEART DISEASE 2.0-3.0 ATRIAL FIBRILLATION 2.0-3.0 MECHANICAL VALVES(HIGH RISK) 2.5-3.5 RECURRENT MYOCARDIAL INFARCTION 2.5-3.5 Radiology Order: CT Head Without Contrast Test: CT Head Without Contrast REASON FOR EXAMINATION: Syncope; ; CLINICAL HISTORY: Suspected stroke.; TECHNIQUE: Multiple axial CT images were obtained through the brain without IV contrast material.; COMMENTS:; Comparison is made to the prior exam performed on 06/13/2014.; There is acute hematoma measuring 2.5x2.2 cm in its largest transverse and anterior-posterior dimensi; ons respectively. This is noted in the left basal ganglia and thalamus. Associated left intraventricu; lar hemorrhage. 4 mm midline shift to the right side. Surrounding edema and mass effect with compress; ion of the corresponding aspect of the left lateral ventricle.; IMPRESSION:; Acute intra-parenchymal left cerebral hematoma in the left basal ganglia and thalamus.; Associated 4 mm midline shift to the right side.; Surrounding edema.; Compression of the left lateral ventricle.; Associated acute intraventricular hemorrhage.; Thank you for your kind referral of this patient.; ; ; Radiology Order: Tibia/Fibula Test: Tibia/Fibula REASON FOR EXAMINATION: Trauma; Clinical: Trauma.; ; Technique: AP, lateral views of the right tibia / fibula.; ; Findings: There is a nondisplaced fracture involving the distal fibular; metadiaphysis and possible nondisplaced fracture of the may medial malleolus.; Injury involving the proximal fibular metadiaphysis versus chronic change cannot; be excluded as well. Vascular calcifications are identified. Underlying; osteopenia and degenerative changes appreciated. Soft tissue swelling at the; ankle noted.; ; Impression:; Nondisplaced fracture of the distal fibula and medial malleolus.; Soft tissue swelling at the ankle.; Cannot exclude injury to the proximal fibular shaft.; ; ; Signed by; Seng Schneider MD 03/05/2016 08:10 A; Radiology Order: -MRA-Brain without contrast Test: -MRA-Brain without contrast REASON FOR EXAMINATION: per Dr Rivas for ICH; MRI BRAIN WITHOUT CONTRAST:; ; HISTORY: Intracranial hemorrhage.; ; 3D [id number] MR angiography was performed at the level of the [place] of; [place]. There is no aneurysm or arteriovenous malformation. Mild; atherosclerotic disease involves the cavernous and supraclinoid internal carotid; arteries, right middle cerebral artery trifurcation and right posterior cerebral; artery. There is origin of the right posterior cerebral artery. Major; intracranial vessels are patent. The left vertebral artery is dominant.; ; IMPRESSION:; ; 1. There is no aneurysm or arteriovenous malformation.; ; 2. Atherosclerotic disease as described above.; ; ; Signed by; John Baez MD 03/05/2016 09:20 A; Radiology Order: -MRI-Brain without Test: -MRI-Brain without REASON FOR EXAMINATION: per Dr Rivas for ICH; MR BRAIN WITHOUT CONTRAST:; ; HISTORY: Intracranial hemorrhage.; ; COMPARISON: MR 06/13/[address] 03/05/2016.; ; An acute intraparenchymal hematoma is present in the left thalamus, basal; ganglia, temporal and parietal lobes. The hematoma measures 2.8 cm in transverse; by 2.7 cm in AP dimensions and is unchanged in size compared to the previous; study. There is mass effect with partial effacement of the body of the left; lateral and third ventricles with minimal midline shift to the right. An area of; increased signal intensity on T2-weighted images is present in the right; thalamus. This represents an old lacunar infarction. Areas of increased signal; intensity on T2-weighted images are present in the periventricular and; subcortical white matter and kemi. This represents small vessel ischemic; disease. Multiple small areas of decreased signal intensity on T2 gradient echo; images are present in the cerebral hemispheres, brainstem and cerebellum. This; represents hemosiderin secondary to chronic micro hemorrhage. Intraventricular; hemorrhage is present. The ventricular system and cortical sulci are dilated; consistent with moderate volume loss. There is no extracerebral collection.; Mucosal thickening is present in the right mastoid air cells. The sinuses are; clear.; ; IMPRESSION:; ; 1. There is an acute intraparenchymal hematoma 2.8 cm in width in the left; thalamus, basal ganglia, temporal and parietal lobes with minimal midline shift; to the right unchanged in size compared to the previous study.; ; 2. Intraventricular hemorrhage unchanged compared to the previous study.; ; 3. 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 Small vessel ischemic disease.; ; 5. Moderate volume loss.; ; ; Signed by; John Baez MD 03/05/2016 09:12 A; Radiology Order: CT Spine,Cervical W/o Contrast Test: CT Spine,Cervical W/o Contrast REASON FOR EXAMINATION: Trauma; CT CERVICAL SPINE WITHOUT CONTRAST:; ; HISTORY: Trauma.; ; There is no acute fracture. Disc bulges are present at the C3-4 through C5-6; levels. A disc bulge with associated osteophyte formation is present at the C6-7; level. There is minimal narrowing of the spinal canal. Uncinate process and/or; facet hypertrophy are present at the C2-3 through C7-T1 levels. These findings; produce minimal to mild narrowing of the neural foramina. The C5-6 and C6-7; intervertebral discs are decreased in height consistent with disc degeneration.; There are 2 mm of anterior subluxation of C5 on 6. Hypodensities are present in; the thyroid gland. These may represent cysts.; ; IMPRESSION:; ; 1. There is no acute fracture.; ; 2. There is cervical spondylosis at the C2-3 through C7-T1 levels.; ; 3. There are hypodensities in the thyroid gland. These may represent cysts.; ; ; Signed by; John Baez MD 03/05/2016 10:00 A; Radiology Order: CT Spine,Thoracic W/o Contrast Test: CT Spine,Thoracic W/o Contrast REASON FOR EXAMINATION: Trauma; Clinical: Trauma.; ; Technique: Axial noncontrast images through the thoracic spine with coronal and; sagittal re-formations.; ; Comparison: None.; ; Findings:; There is a compression fracture at T12 with approximately 50% loss of anterior; vertebral body height which is relatively new compared to abdominal CT dated; 2012. There is no associated retropulsed fracture fragment and no obvious canal; stenosis at this level.; ; Moderate osteopenia and multilevel degenerative disc osteophyte complexes are; noted throughout the visualized thoracic spine. There is chronic posterior; osteophyte and associated disc bulge at the T7-T8 level which appears to cause; moderate canal stenosis. Alignment is otherwise maintained and the spinal canal; appears otherwise patent and normal. Posterior elements and spinous processes; are intact.; ; Impression:; 1. Compression fracture at T12 with 50% loss of anterior vertebral body height; and no retropulsed fracture fragment.; 2. Osteopenia and moderate to advanced multilevel degenerative disc osteophyte; complexes including posterior osteophyte and disc bulge at the T7-T8 level which; appears to cause moderate chronic canal stenosis.; ; ; Signed by; Seng Schneider MD 03/05/2016 09:47 A; Outcome: 03:06 CT Study completed. mlc 08:46 Decision to Hospitalize by Provider. sd1 12:30 Discharge Assessment: patient administered narcotics - no. The following High Risk ml6 Discharge criteria are identified: None. Admitted to ICU accompanied by nurse, accompanied by tech, on monitor, with chart. Condition: stable. Admission hand-off: Report called to Nader Kohler RN. Property :Personal belongings accompany Pt. 12:59 Patient left the ED. ml6 Signatures: Dispatcher [employer] EDMO Meryl Amador MD MD sd1 Yamilet [place], Reg Reg gb Kirstie Keebeth, [employer] ml3 Tea Singer,RN RN lf1 Romeo Rios RN RN ml6 Carmenza Dumont RN RN jc4 Emeterio Smith, DO cs11 Rere Carballo RN RN [facility] [place] Anila Mir, Reg Reg hs2 Elise Dacosta, LEIF MANAGER MANAGED CARE cln Corrections: (The following items were deleted from the chart) 03:03 02:59 niCARdipine (CVA, 25mg/250mL NS) 5 mg/hr IV at calculated rate in left mlc antecubital mlc Chart Complete MTDD
--- NOTE | 2016-03-07 14:00 | EDDOCDS ---
Physician Documentation [facility] Name: Flavio Perkins Age: 85 yrs Sex: Female : 1930 Arrival Date: 03/05/2016 Time: 02:03 Bed Admit Hold Private MD: Cleve Gómez Disposition: 03/05/16 08:46 Hospitalization ordered by Mike Rivas for Inpatient Admission. Preliminary diagnosis is Aphasia following nontraumatic intracerebral hemorrhage. - Bed requested for ICU. - Status is Inpatient Admission. ml6 - Condition is Stable. - Problem is new. - Symptoms are unchanged. Historical: - Allergies: No known drug Allergies; - Home Meds: 1. aspirin 81 mg Oral TbEC once daily (Last dose: 03/04/2016 08:28) 2. atenolol 25 mg Oral tab 1 tab once daily (Last dose: 03/04/2016 08:28) 3. Klor-Con Sprinkle 10 mEq oral cpER 1 cap once daily (Last dose: 03/04/2016 08:28) - PMHx: disorder magnesium metabolism; essential hypertension; liver cirrhosis; TIA; Hypokalemia; Portal hypertension; Chronic Low Back Pain; Hemochromatosis; - PSHx: Cholecystectomy; Appendectomy; Hysterectomy; Thyroidectomy; - Social history: Smoking status: unknown if patient ever smoked tobacco. Patient is speech impaired. - Family history: Not pertinent. - : The pt / caregiver states he / she is not on anticoagulants. Home medication list is obtained from the facility APR. - Exposure Risk Screening:: None identified. Vital Signs: 03/05 02:17 BP 202 / 95 (auto/); mlc 02:18 Pulse 70 MON; Pulse Ox 97% ; mlc 02:19 BP 198 / 94 LA Supine (auto/reg); Pulse 71 MON; Resp 20 S; Temp 98.6(TE); Pulse Ox 98% cln on 2 lpm NC; 02:32 Pulse 68 MON; Pulse Ox 96% ; mlc 02:32 BP 187 / 88; mlc 02:32 BP 187 / 88 (auto/); mlc 02:33 Pulse 66 MON; Pulse Ox 96% ; mlc 02:46 Pulse 66 MON; Pulse Ox 96% ; mlc 02:46 BP 179 / 84 (auto/); mlc 02:53 BP 183 / 80 (auto/); mlc 02:54 Pulse 66 MON; Pulse Ox 97% ; mlc 02:56 Pulse 68 MON; Pulse Ox 97% ; mlc 02:56 BP 172 / 80 (auto/); mlc 03:01 BP 161 / 75 (auto/); mlc 03:02 Pulse 68 MON; Pulse Ox 96% ; mlc 03:06 Pulse 70 MON; Pulse Ox 91% ; mlc 03:06 BP 152 / 70 (auto/); mlc 03:11 BP 123 / 59 (auto/); mlc 03:12 Pulse 70 MON; Pulse Ox 92% ; mlc 03:16 BP 118 / 54 (auto/); mlc 03:17 Pulse 66 MON; Pulse Ox 94% ; mlc 03:20 BP 107 / 57 (auto/); mlc 03:20 Pulse 68 MON; Pulse Ox 88% ; mlc 03:22 Pulse 66 MON; Pulse Ox 96% ; mlc 03:26 BP 97 / 51 (auto/); mlc 03:27 Pulse 64 MON; Pulse Ox 95% ; mlc 03:31 BP 99 / 56 (auto/); mlc 03:32 Pulse 64 MON; Pulse Ox 93% ; mlc 03:36 BP 113 / 59 (auto/); mlc 03:37 Pulse 68 MON; Pulse Ox 95% ; mlc 03:41 BP 113 / 59 (auto/); mlc 03:42 Pulse 68 MON; Pulse Ox 97% ; mlc 03:46 BP 113 / 63 (auto/); mlc 03:47 Pulse 68 MON; Pulse Ox 96% ; mlc 03:51 BP 117 / 66 (auto/); mlc 03:52 Pulse 68 MON; Pulse Ox 97% ; mlc 03:56 BP 115 / 65 (auto/); mlc 03:57 Pulse 68 MON; Pulse Ox 97% ; mlc 04:01 BP 122 / 67 (auto/); mlc 04:02 Pulse 68 MON; Pulse Ox 97% ; mlc 04:06 Pulse 68 MON; Pulse Ox 98% ; mlc 04:06 BP 151 / 87 (auto/); mlc 04:11 BP 151 / 79 (auto/); mlc 04:12 BP 156 / 72 (auto/); mlc 04:12 Pulse 70 MON; Pulse Ox 98% ; mlc 04:13 Pulse 72 MON; Pulse Ox 97% ; mlc 04:16 BP 156 / 72 (auto/); mlc 04:17 Pulse 76 MON; Pulse Ox 98% ; mlc 04:21 BP 143 / 74 (auto/); mlc 04:22 Pulse 76 MON; Pulse Ox 97% ; mlc 04:26 BP 139 / 68 (auto/); mlc 04:27 Pulse 78 MON; Pulse Ox 97% ; mlc 04:31 BP 129 / 60 (auto/); mlc 04:32 Pulse 74 MON; Pulse Ox 97% ; mlc 04:36 BP 134 / 63 (auto/); mlc 04:37 Pulse 74 MON; Pulse Ox 97% ; mlc 04:41 BP 125 / 58 (auto/); mlc 04:42 Pulse 72 MON; Pulse Ox 97% ; mlc 04:46 BP 127 / 62 (auto/); mlc 04:47 Pulse 74 MON; Pulse Ox 97% ; mlc 04:51 BP 129 / 61 (auto/); mlc 04:52 Pulse 74 MON; Pulse Ox 96% ; mlc 04:56 BP 118 / 58 (auto/); mlc 04:57 Pulse 72 MON; Pulse Ox 97% ; mlc 05:01 BP 118 / 60 (auto/); mlc 05:02 Pulse 72 MON; Pulse Ox 97% ; mlc 05:06 BP 117 / 58 (auto/); mlc 05:07 Pulse 72 MON; Pulse Ox 97% ; mlc 05:11 BP 120 / 59 (auto/); mlc 05:12 Pulse 70 MON; Pulse Ox 97% ; mlc 05:16 BP 124 / 57 (auto/); mlc 05:17 Pulse 70 MON; Pulse Ox 97% ; mlc 05:21 BP 125 / 57 (auto/); mlc 05:22 Pulse 70 MON; Pulse Ox 96% ; mlc 05:26 BP 124 / 58 (auto/); mlc 05:27 Pulse 72 MON; Pulse Ox 97% ; mlc 05:31 BP 112 / 56 (auto/); mlc 05:32 Pulse 70 MON; Pulse Ox 97% ; mlc 05:36 BP 129 / 64 (auto/); mlc 05:37 Pulse 42 MON; Pulse Ox 97% ; mlc 05:39 Pulse 70 MON; Pulse Ox 97% ; mlc 05:41 BP 134 / 71 (auto/); mlc 05:42 Pulse 70 MON; Pulse Ox 97% ; mlc 05:46 BP 128 / 63 (auto/); mlc 05:47 Pulse 76 MON; Pulse Ox 97% ; mlc 05:51 BP 126 / 62 (auto/); mlc 05:52 Pulse 74 MON; Pulse Ox 96% ; mlc 05:56 BP 130 / 63 (auto/); mlc 05:57 Pulse 72 MON; Pulse Ox 95% ; mlc 06:06 BP 132 / 74 (auto/); mlc 06:06 Pulse 80 MON; Pulse Ox 97% ; mlc 06:11 Pulse 76 MON; Pulse Ox 94% ; mlc 06:11 BP 118 / 59 (auto/); mlc 06:16 BP 116 / 56 (auto/); mlc 06:17 Pulse 74 MON; Pulse Ox 93% ; mlc 06:18 Pulse 72 MON; Pulse Ox 93% ; mlc 06:21 BP 106 / 56 (auto/); mlc 06:22 Pulse 66 MON; Pulse Ox 94% ; mlc 06:26 Pulse 72 MON; Pulse Ox 95% ; mlc 06:26 BP 104 / 52 (auto/); mlc 06:29 BP 100 / 62 (auto/); mlc 06:30 Pulse 86 MON; Pulse Ox 96% ; mlc 06:31 BP 105 / 55 (auto/); mlc 06:32 Pulse 76 MON; Pulse Ox 97% ; mlc 06:36 BP 102 / 58 (auto/); mlc 06:36 Pulse 76 MON; Pulse Ox 97% ; mlc 06:45 BP 125 / 66 (auto/); mlc 06:48 Pulse 72 MON; Pulse Ox 96% ; mlc 07:16 BP 103 / 54 (auto/); ml6 07:16 Pulse 72 MON; Resp 16; Pulse Ox 96% on R/A; ml6 07:31 BP 108 / 59 (auto/); ml6 07:31 Pulse 68 MON; Resp 16; Pulse Ox 97% on R/A; ml6 07:36 Weight 61.14 kg / 134.79 lbs (R); Height 5 ft. (152.40 cm); ml6 07:36 BP 101 / 59 (auto/); ml6 07:36 Pulse 68 MON; Resp 16; Pulse Ox 94% on R/A; ml6 08:32 BP 166 / 78 (auto/); Pulse 74; Resp 16; Pulse Ox 98% on R/A; ml6 09:32 BP 139 / 69 (auto/); ml6 09:32 Pulse 72 MON; Resp 18; Pulse Ox 98% on R/A; ml6 09:47 BP 126 / 62 (auto/); ml6 09:47 Pulse 70 MON; Resp 16; Pulse Ox 98% on R/A; ml6 10:02 BP 124 / 62 (auto/); ml6 10:02 Pulse 70 MON; Resp 16; Pulse Ox 98% on R/A; Pain 0/10; ml6 10:17 BP 124 / 66 (auto/); ml6 10:17 Pulse 70 MON; Resp 16; Pulse Ox 97% on R/A; ml6 10:32 BP 129 / 68 (auto/); ml6 10:32 Pulse 72 MON; Resp 16; Pulse Ox 97% on R/A; ml6 10:47 BP 129 / 58 (auto/); ml6 10:47 Pulse 76 MON; Resp 16; Pulse Ox 98% ; ml6 11:02 BP 148 / 66 (auto/); ml6 11:02 Pulse 70 MON; Resp 16; Pulse Ox 96% on R/A; ml6 11:32 BP 106 / 56 (auto/); ml6 11:32 Pulse 74 MON; Resp 16; Pulse Ox 96% on R/A; ml6 11:47 BP 105 / 55 (auto/); ml6 11:47 Pulse 74 MON; Resp 16; Pulse Ox 97% on R/A; ml6 12:02 BP 104 / 55 (auto/); ml6 12:02 Pulse 72 MON; Resp 6; Pulse Ox 97% on R/A; ml6 12:17 BP 104 / 55 (auto/); ml6 12:17 Pulse 72 MON; Resp 16; Temp 97.8(O); Pulse Ox 96% on R/A; Pain 0/10; ml6 07:36 Body Mass Index 26.33 (61.14 kg, 152.40 cm) ml6 MDM: 02:18 CT Head Without Contrast Ordered. EDMS 02:37 IV Saline Lock ordered. cs11 02:37 Dexamethasone 6 mg IV at bolus once ordered. cs11 02:38 CBC Ordered. EDMS 02:38 MED Profile Ordered. EDMS 02:38 Pt & Aptt Ordered. EDMS 02:40 Tibia/Fibula Ordered. EDMS 02:40 BED REQUEST+ADM ordered. EDMS 02:58 Financial registration complete. hs2 02:59 MRI Screening Tool - Place on chart, inform RN ordered. cs11 02:59 MRI Screening Tool - Place on chart, inform RN complete. ml3 03:00 -MRA-Brain without contrast Ordered. EDMS 03:00 -MRI-Brain without Ordered. EDMS 03:08 niCARdipine 5 mg/hr IV at 25 mL/hr continuous; pre-mix in 40mg/200mL bag ordered. mlc 03:33 NS 0.9% 500 ml IV at bolus once ordered. mlc 03:39 [facility] Payment Agreement was scanned into [employer] and attached to record. hs2 04:18 niCARdipine 1 mg/hr IV at 25 mL/hr continuous; pre-mix in 40mg/200mL bag ordered. mlc 06:45 Apply Air Cast to Patient. ordered. cs11 08:52 CT Spine,Cervical W/o Contrast Ordered. EDMS 08:52 CT Spine,Thoracic W/o Contrast Ordered. EDMS 08:52 CT Spine, Lumbar W/o Contrast Ordered. EDMS 09:13 Admission / Observation Status ordered. EDMS 09:13 NPO DIET ordered. EDMS 09:18 Misc. Nursing Order ordered. sd1 11:39 CT ANGIO HEAD Ordered. EDMS 11:39 CT ANGIO HEAD Ordered. EDMS 03/06 10:07 T-Sheet-- Draft Copy was scanned into [employer] and attached to record. gb Administered Medications: 03/05 02:59 Drug: Dexamethasone 6 mg [dexamethasone 4 mg/mL injection solution] Route: IV; Rate: mlc bolus; Site: left antecubital; 02:59 Drug: niCARdipine 5 mg/hr [nicardipine 40 mg/200 mL in sodium chloride(iso) intravenous mlc piggyback] Route: IV; Rate: 25 mL/hr; Site: left antecubital; 03:16 Follow up: Rate change 2 mg/hr mlc 03:17 Follow up: IV Status: Infusion discontinued mlc 03:07 CANCELLED (Other Intervention Used): niCARdipine (CVA, 25mg/250mL NS) 5 mg/hr IV at mlc calculated rate continuous; Titrate 2.5mg/hr q5min to keep SBP 140-185mmHg. Max rate 15mg/hr 03:33 Drug: NS 0.9% 500 ml [sodium chloride 0.9 % intravenous solution] Route: IV; Rate: mlc bolus; Site: left antecubital; 04:09 Follow up: IV Status: Completed infusion mlc 04:18 Drug: niCARdipine 1 mg/hr [nicardipine 40 mg/200 mL in sodium chloride(iso) intravenous mlc piggyback] Route: IV; Rate: 25 mL/hr; Site: left antecubital; Signatures: Dispatcher [employer] Meryl Kurtz MD MD sd1 Jocelynn Gavin, [place] lbd Yamilet [place], Reg Reg gb Leilani Kee, [place] ml3 Tea Singer RN RN lf1 Romeo Rios RN RN ml6 Emeterio Smith, DO DO cs11 Rere Carballo RN RN mlc Anila Mir, Reg Reg hs2 The chart was reviewed and I authenticate all verbal orders and agree with the evaluation and treatment provided.Corrections: (The following items were deleted from the chart) 03:07 02:37 niCARdipine (CVA, 25mg/250mL NS) 5 mg/hr IV at calculated rate continuous; mlc Titrate 2.5mg/hr q5min to keep SBP 140-185mmHg. Max rate 15mg/hr ordered. cs11 03:07 03:03 niCARdipine (CVA, 25mg/250mL NS) 5 mg/hr IV at calculated rate continuous; mlc Titrate 2.5mg/hr q5min to keep SBP 140-185mmHg. Max rate 15mg/hr ordered. mlc Attachments: 03:39 [facility] [place] Payment Agreement hs2 03/06 10:07 T-Sheet-- Draft Copy gb Chart Complete MTDD
[2016-03-07] MEDS: PANTOPRAZOLE 40MG INJ (PROTONIX) (C9113) IV SCH (15:00)
[2016-03-07] MEDS: MORPHINE 2 MG/ML 1ML SYRINGE IV PRN (21:08)
[2016-03-07] MEDS: ACETAMINOPHEN 325 MG/10.15 ML UDC PO PRN (21:34)
[2016-03-08] VITALS (15 sets, daily range): BP systolic 109–159; BP diastolic 53–87
[2016-03-08 05:04] LABS: ALBUMIN/GLOBULIN RATIO 1.07 (1.00-1.93); BILIRUBIN,TOTAL 1.7 MG/DL (0.2-1.0); CALCIUM LEVEL 7.5 MG/DL (8.8-10.2); CREATININE FOR GFR 0.98 MG/DL (0.55-1.02); GLOMERULAR FILTRATION RATE 57.3 (>32); POTASSIUM SERUM 3.7 MEQ/L (3.5-5.1); TOTAL PROTEIN 5.8 GM/DL (6.4-8.2)
[2016-03-08 05:05] LABS: MEAN CORPUSCULAR HEMOGLOBIN 23.4 pg (27.0-33.0); MEAN CORPUSCULAR VOLUME 75.4 fl (80.0-96.0); RED CELL DISTRIBUTION WIDTH 17.8 % (11.5-14.5); WHITE BLOOD COUNT 23.4 K/mm3 (4.0-10.0)
[2016-03-08] MEDS: SLF 3 ML SYR IV SCH ×3 (05:21→22:48)
[2016-03-08] MEDS: niCARdipine 20 MG CAP PO SCH (09:06)
[2016-03-08] MEDS: KCL 40MEQ IN D5/0.45NS 1000ML 1,000 ML IV SCH (11:15)
[2016-03-08] MEDS: MORPHINE 2 MG/ML 1ML SYRINGE IV PRN (14:34)
[2016-03-08] MEDS: PANTOPRAZOLE 40MG INJ (PROTONIX) (C9113) IV SCH (14:35)
[2016-03-09 05:31] VITALS: BP 158/75
[2016-03-09] MEDS: KCL 40MEQ IN D5/0.45NS 1000ML 1,000 ML IV SCH (05:31)
[2016-03-09] MEDS: SLF 3 ML SYR IV SCH (05:32)
[2016-03-09] MEDS: ACETAMINOPHEN 325 MG/10.15 ML UDC PO PRN (05:32)
[2016-03-09 06:00] VITALS: BP 158/75
--- NOTE | 2016-03-09 07:28 | REP ---
Clinical: Feeding tube placement. Comparison : 2016 Findings: Nasogastric tube extends midline below the diaphragm. Lung kerr appear stable suggesting chronic changes. Impression: Nasogastric tube extends below the left hemidiaphragm. No new acute cardiopulmonary process appreciated. Signed by Seng Schneider MD 03/09/2016 07:19 A
[2016-03-09] MEDS ORDERED: SCOPOLAMINE 1.5 MG TRANSDERMAL TD PRN (13:00)
[2016-03-09] MEDS ORDERED: LORazepam 1 MG TAB PO PRN (13:00)
[2016-03-09] MEDS ORDERED: FLEET ENEMA PR PRN (13:00)
[2016-03-09] MEDS ORDERED: ONDANSETRON 4MG/2ML VIAL (J2405) IV PRN (13:00)
[2016-03-09] MEDS ORDERED: BISACODYL 10 MG SUPP PR PRN (13:00)
[2016-03-09] MEDS ORDERED: LORazepam 2 MG/ML VIAL (J2060) IV PRN (13:00)
[2016-03-09] MEDS ORDERED: MORPHINE 10MG/0.5ML ORAL CONCENTRATE SOLUTION U/D SL PRN (13:00)
--- NOTE | 2016-03-09 15:24 | IPN ---
DATE: 03/09/2016 The patient is seen and examined. The patient is arousable to verbal stimuli, but pretty much remains nonverbal. Not following commands. Seems to be not in any significant distress. Afebrile overnight. Nasogastric tube has been dislodged overnight and replaced this morning. VITAL SIGNS: Temperature 99.1, pulse 89, respirations 20, blood pressure 158/75, pulse oximetry 95% on 2 liters nasal cannula. LABORATORY DATA: WBC 23.4, hemoglobin and hematocrit 14.8/28.2, platelets 117. Chemistry: Sodium 139, potassium 3.7, chloride 106, bicarbonate 23, BUN 20, creatinine 0.98. PHYSICAL EXAMINATION: GENERAL: The patient is lethargic, barely arousable. Responds to voice minimally. Withdraws from pain. HEENT: Moist mucous membranes. Normocephalic. CARDIAC: Regular. S1, S2. PULMONARY: Coarse breath sounds bilaterally. EXTREMITIES: Right upper and lower extremity does not withdraw from pain. Left upper and lower extremities withdraws from pain. Trace edema in bilateral lower extremities. ABDOMEN: Soft, nontender. Positive bowel sounds. Mildly distended. 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 Patient was initially admitted for acute intracranial hemorrhage with hypertensive emergency. Spoke to family and healthcare proxy, Mr. Aaron Perkins, agreed that patient would not want to be kept alive with artificial nutrition and agreed that the patient currently does not have much quality of life and would like the patient to be comfort measures only. 1. Acute intracranial hemorrhage. The patient is currently comfort measures only. Nasogastric tube feeding has been discontinued. IV fluids have been discontinued as well. Roxanol, Ativan, scopolamine patch as needed. Enema as needed. Withholding oral medications given the patient is not tolerating anything orally. The patient was observed in intensive care unit (ICU), currently under hospitalist service. 2. Right tibial fracture. The patient has an air cast. THe patient is currently comfort measures only. Pain medications prescribed. 3. Gastrointestinal prophylaxis. Proton pump inhibitor. 4. Deep vein thrombosis (DVT) prophylaxis. Sequential compression device (SCD). DISPOSITION: The patient is currently comfort measures only.
[2016-03-09] MEDS: PANTOPRAZOLE 40MG INJ (PROTONIX) (C9113) IV SCH (16:14)
--- NOTE | 2016-03-09 20:31 | EEG ---
DATE OF PROCEDURE: 03/08/2016 REFERRING PHYSICIAN: Aaron Jeffries MD DIAGNOSIS: Stroke. EE 17 CLINICAL HISTORY: The patient is an 85-year-old woman who was admitted at [facility] and was found to have a large parenchymal intracranial hemorrhage. This EEG was done to rule out epileptic potential and assess degree of encephalopathy. She is currently on nicardipine, diltiazem, clonidine, etc. TECHNICAL DESCRIPTION: This digital EEG was recorded by 21 scalp, ear and two EKG electrodes and was reviewed in bipolar and referential montages following reformatting in 10-20 international electrode placement system. INTERPRETATION: The patient was mostly noted to be in drowsy state during this EEG. Background rhythm consisted of 5 - 6 Hz theta activity in the right cerebral hemisphere. In left cerebral hemisphere 3 - 4 Hz delta slowing was seen. Hyperventilation could not be performed. Photic stimulation remained unremarkable. No clear sleep was achieved. EKG revealed normal sinus rhythm. No clear epileptiform abnormalities were seen. No clinical or electrographic seizures were recorded. CONCLUSION: This EEG in a patient with intracerebral hemorrhage is abnormal due to presence of mild generalized slowing with left frontal, temporal and parietal delta activity consistent with nonspecific diffuse cerebral dysfunction such as seen in encephalopathy with underlying focal, cortical, structural or functional abnormality in the left cerebral hemisphere likely related to intracerebral hemorrhage. No epileptiform abnormalities were seen. Clinical correlation is recommended.
[2016-03-10] MEDS ORDERED: LORA1TAB12 PO (11:13)
[2016-03-10] MEDS ORDERED: MORP1SOL PO (11:13)
[2016-03-10] MEDS ORDERED: BISA10SU PR (11:13)
[2016-03-10] MEDS ORDERED: ATRO1OPD PO (11:13)
--- NOTE | 2016-03-10 15:57 | DSES ---
DATE OF ADMISSION: 03/05/2016 DATE OF DISCHARGE: 03/10/2016 PRIMARY CARE PROVIDER: Santiago Mazariegos CRITICAL CARE ATTENDING: Dr. Jeffries NEUROSURGEON: Dr. Rivas FINAL DIAGNOSES: 1. Acute intracranial hemorrhage. 2. Right tibial fracture. 3. Underlying history of cerebrovascular accident. 4. Hypertension. 5. Gastroesophageal reflux disease. 6. Cirrhosis due to hemochromatosis. 7. Portal hypertension. 8. Spinal stenosis. 9. Overactive bladder. 10. Recurrent urinary tract infection. 11. Coronary artery disease. 12. Pancytopenia. 13. Comfort measures only. HISTORY OF PRESENT ILLNESS: This is an 85-year-old female found fallen at [facility] care facility. Was brought to the emergency room and found hypertensive, and CT scan of her head reveals large intraparenchymal bleed of 23 mm as well as old lacunar infarcts. Nicardipine dip was initially started and weaned and targeted systolic blood pressure of 140. Patient has a [place] coma score of 9. Was nonverbal. HOSPITAL COURSE: Patient was admitted to intensive care unit (ICU), monitored, Neurosurgery was consulted. Blood pressure was controlled. Nasogastric (NG) tube was placed for tube feeding and also medications. Subsequently patient was treated. Patient's respiratory status remained stable but remained nonverbal. Subsequently, patient was transferred to hospitalist service. Case was discussed with patient's son, Aaron, qamar. As per patient son, she would not want to live like this on artificial nutrition, bed-bound, and with no quality of life. Subsequently, decision was made to make the patient comfort measures only. NG tube was removed. Roxanol, Ativan, scopolamine were given to the patient. Patient remained nothing by mouth given patient not tolerating much oral. Patient was transferred back to halfway facility on comfort measures only. DISCHARGE MEDICATIONS: - atropine 1% solution one to two drop by mouth every 2 hours as needed - Dulcolax suppository 10 mg per rectal every 24 hours as needed - Ativan 0.5 mg by mouth every 4 hours as needed - Roxanol 10 mg per 0.5 mL concentration, 0.25-1 mL by mouth every 2 hours as needed DISCHARGE INSTRUCTIONS: Followup with primary care provider at halfway facility for further care. Patient will remain comfort measures only.
== END 2016-03-10 15:06 | DRG 64 ==
LOC: M ED 02:03 → M ED INP 09:07 → M ICU 13:06 → M MSPAV 03-08 12:02
PROVIDERS: ADMIT Internal Medicine Pulmonary Disease; ATTEND Hospitalist
DX: I61.4 Nontraumatic intracerebral hemorrhage in cerebellum (principal); S06.370A Contusion, laceration, and hemorrhage of cerebellum without loss of consciousness, initial encounter; D61.818 Other pancytopenia; I16.9 Hypertensive crisis, unspecified; S82.65XA Nondisplaced fracture of lateral malleolus of left fibula, initial encounter for closed fracture; K21.9 Gastro-esophageal reflux disease without esophagitis; I25.10 Atherosclerotic heart disease of native coronary artery without angina pectoris; Z51.5 Encounter for palliative care; I27.2 Other secondary pulmonary hypertension; K74.60 Unspecified cirrhosis of liver; E83.119 Hemochromatosis, unspecified; N32.81 Overactive bladder; Z86.73 Personal history of transient ischemic attack (TIA), and cerebral infarction without residual deficits; Z79.899 Other long term (current) drug therapy; W18.30XA Fall on same level, unspecified, initial encounter; Y92.009 Unspecified place in unspecified non-institutional (private) residence as the place of occurrence of the external cause